=== PATIENT | male | born 1960 | race African-American/Black ===

== ENCOUNTER 2016-06-01 05:37 | Emergency (ER) | payer SELFPAY ==
[~2016-06-01] VITALS: Ht 167.6 cm; Wt 86.0 kg
[~2016-06-01 05:37] MED LIST: LORTA10 PO; OMEP20CA5 PO
[2016-06-01 05:41] VITALS: BP 167/100; PULSE 93; RESP 15; TEMP 97.6; O2SAT 95
--- NOTE | 2016-06-01 06:06 | PD ---
HPI Chief Complaint: Chest Pain Time Seen by Provider: 06:05 Travel History International Travel<30 days: No Contact w/Intl Traveler<30days: No Traveled to known affect area: No History of Present Illness HPI 55-year-old male came to the emergency room with history of right sided chest pain. Patient says it's been going on for past 2-3 days. He was description about the pain is vague. He says the pain radiates from the right side of the chest to the sternal area. He says walking or taking a deep breath makes the pain worse. Describes the pain as sharp in nature. He was hypertensive in triage. He says he is not on any medications and has not been diagnosed with any medical issues. He does not have a primary care physician however. He has had quite a few surgeries in the past. He appeared to be in mild discomfort. No history of fever or chills. No history of cough. Patient is not a smoker. PFSH Past Medical History Narrative Medical List of his past medical, surgical, social and family history was reviewed from the nursing note. Arthritis: Yes Blood Disorders: No Cancer: No Cardiovascular Problems: No Diabetes: No Diminished Hearing: No Endocrine: No Genitourinary: No Immune Disorder: No Musculoskeletal: Yes Neurologic: No Respiratory: Yes Past Surgical History Abdominal Surgery: Yes (hernia) Cholecystectomy: Yes Eye Surgery: Yes Thoracic Surgery: Yes (LUNG BIOPSY 1999) Social History Alcohol Use: No Tobacco Use: No (quit 30 yrs ago) Substance Use: No Allergies-Medications (Allergen,Severity, Reaction): Coded Allergies: Contrast Media (Verified Allergy, Severe, SWOLLEN LEGS, THIGHS, LOWER EXTREMITIES, 06/01/16) Doesn't know where this came from, not sure if it is an allergy. Comments List of his allergies reviewed from the nursing note. Reported Meds & Prescriptions Reported Meds & Active Scripts Active Ventolin Hfa 18 GM Inh (Albuterol Sulfate) 90 Mcg/Act Aer 2 Puff INH Q4H PRN Zithromax Z-Fitz (Azithromycin) 250 Mg Dspk 250 Mg PO DIRECTED 500 MG (2 tabs) day 1, then 1 tab days 2-5. Deltasone (Prednisone) 20 Mg Tab 40 Mg PO DAILY 5 Days Narrative Medication List of his home medications reviewed from the nursing note. Review of Systems Except as stated in HPI: all other systems reviewed are Neg Physical Exam Narrative GENERAL: Awake, alert, mild distress SKIN: Warm and dry. HEAD: Atraumatic. Normocephalic. EYES: Pupils equal and round. No scleral icterus. No injection or drainage. ENT: No nasal bleeding or discharge. Mucous membranes pink and moist. NECK: Trachea midline. No JVD. CARDIOVASCULAR: Regular rate and rhythm. No murmur appreciated. RESPIRATORY: No accessory muscle use. Clear to auscultation. Breath sounds equal bilaterally. GASTROINTESTINAL: Abdomen soft, non-tender, nondistended. Hepatic and splenic margins not palpable. MUSCULOSKELETAL: No obvious deformities. No clubbing. No cyanosis. No edema. NEUROLOGICAL: Awake and alert. No obvious cranial nerve deficits. Motor grossly within normal limits. Normal speech. PSYCHIATRIC: Appropriate mood and affect; insight and judgment normal. Data Data Last Documented VS Vital Signs Date Time Temp Pulse Resp B/P Pulse Ox O2 Delivery O2 Flow Rate FiO2 06/01/16 10:37 133/92 95 06/01/16 08:49 82 18 Nasal Cannula 2 Orders Electrocardiogram (06/01/16 06:08) Basic Metabolic Panel (Bmp) (06/01/16 06:08) Ckmb (Isoenzyme) Profile (06/01/16 06:08) Complete Blood Count With Diff (06/01/16 06:08) D-Dimer (06/01/16 06:08) Magnesium (Mg) (06/01/16 06:08) Prothrombin Time / Inr (Pt) (06/01/16 06:08) Act Partial Throm Time (Ptt) (06/01/16 06:08) Troponin I (06/01/16 06:08) Chest, Single Ap (06/01/16 06:08) Ecg Monitoring (06/01/16 06:08) Bilateral Bp Monitoring (06/01/16 06:08) Iv Access Insert/Monitor (06/01/16 06:08) Oximetry (06/01/16 06:08) Oxygen Administration (06/01/16 06:08) Sodium Chloride 0.9% Flush (Ns Flush) (06/01/16 06:15) Ketorolac Inj (Toradol Inj) (06/01/16 06:15) CKMB (06/01/16 05:55) CKMB% (06/01/16 05:55) Ct Thorax/ Chest Wo Iv Contras (06/01/16 ) Methylprednisolone So Succ Inj (Solumedr (06/01/16 08:00) Albuterol-Ipratropium Neb (Duoneb Neb) (06/01/16 08:00) Lidocaine Pf 4% Neb (Lidocaine Pf 4% Neb (06/01/16 08:00) Troponin I (06/01/16 09:00) Labs Laboratory Tests Test 06/01/16 06/01/16 05:55 08:50 White Blood Count 5.1 TH/MM3 Red Blood Count 5.93 MIL/MM3 Hemoglobin 16.0 GM/DL Hematocrit 49.2 % Mean Corpuscular Volume 82.9 FL Mean Corpuscular Hemoglobin 26.9 PG Mean Corpuscular Hemoglobin 32.5 % Concent Red Cell Distribution Width 15.3 % Platelet Count 208 TH/MM3 Mean Platelet Volume 9.3 FL Neutrophils (%) (Auto) 48.4 % Lymphocytes (%) (Auto) 34.3 % Monocytes (%) (Auto) 14.3 % Eosinophils (%) (Auto) 2.3 % Basophils (%) (Auto) 0.7 % Neutrophils # (Auto) 2.5 TH/MM3 Lymphocytes # (Auto) 1.7 TH/MM3 Monocytes # (Auto) 0.7 TH/MM3 Eosinophils # (Auto) 0.1 TH/MM3 Basophils # (Auto) 0.0 TH/MM3 CBC Comment DIFF FINAL Differential Comment Prothrombin Time 12.3 SEC Prothromb Time International 1.1 RATIO Ratio Activated Partial 28.5 SEC Thromboplast Time D-Dimer Quantitative (PE/DVT) LESS THAN 0.19 MG/L FEU Sodium Level 139 MEQ/L Potassium Level 4.0 MEQ/L Chloride Level 100 MEQ/L Carbon Dioxide Level 31.7 MEQ/L Anion Gap 7 MEQ/L Blood Urea Nitrogen 8 MG/DL Creatinine 0.90 MG/DL Estimat Glomerular Filtration 107 ML/MIN Rate Random Glucose 95 MG/DL Calcium Level 8.8 MG/DL Magnesium Level 2.3 MG/DL Total Creatine Kinase 471 U/L Creatine Kinase MB 8.5 NG/ML Creatine Kinase MB % 1.8 % Troponin I LESS THAN 0.02 0.02 NG/ML NG/ML MDM Medical Decision Making Medical Screen Exam Complete: Yes Emergency Medical Condition: Yes Medical Record Reviewed: Yes Interpretation(s) Twelve-lead EKG was reviewed by me. Normal sinus rhythm, normal axis, anterior T-wave inversions. This EKG is slightly different from his last EKG from 2008. Heart rate of 89 bpm. Differential Diagnosis PE, pneumonia, pneumothorax, ACS, non-STEMI Narrative Course 6:15 AM patient was given IV Toradol for pain control. I have ordered blood test including d-dimer and chest x-ray. 7:04 AM case was signed over to the oncoming ER physician. Procedures EKG Prior to Arrival: Yes Scripts Albuterol 18 GM Inh (Ventolin Hfa 18 GM Inh)90 Mcg/Act Aer2 Puff INH Q4H PRN ( SHORTNESS OF BREATH) #1 INHALER Ref 0 Prov:Shubham Fritz MD 06/01/16 Azithromycin (Zithromax Z-Fitz)250 Mg [id number] Mg PO DIRECTED #1 DSPK Ref 0 500 MG (2 tabs) day 1, then 1 tab days 2-5. Prov:Shubham Fritz MD 06/01/16 Prednisone (Deltasone)20 Mg Tab40 Mg PO DAILY 5 Days Ref 0 Prov:Shubham Fritz MD 06/01/16 Triston Avila MD Jun 01, 2016 06:05
[2016-06-01] MEDS ORDERED: SODIUM CHLORIDE 0.9% FLUSH 5 ML FLUSH IVF PRN (06:15)
[2016-06-01] MEDS ORDERED: KETOROLAC TROMETHAMINE 30 MG/ML (IVP) VIAL IV PUSH ONE (06:15)
[2016-06-01 06:31] LABS: AUTOMATED NEUTROPHIL # 2.5 TH/MM3 (1.8-7.7); BASOPHIL % 0.7 % (0.0-2.0); EOSINOPHIL # 0.1 TH/MM3 (0-0.4); EOSINOPHIL % 2.3 % (0.0-4.0); HEMATOCRIT 49.2 % (39.0-51.0); HEMO FLAGS DIFF FINAL; LYMPH % 34.3 % (9.0-44.0); LYMPHOCYTE # 1.7 TH/MM3 (1.0-4.8); MEAN CELL VOLUME 82.9 FL (80.0-100.0); MEAN CORPUSCULAR HEMOGLOBIN 26.9 PG (27.0-34.0); MEAN CORPUSCULAR HGB CONC 32.5 % (32.0-36.0); MONO % 14.3 % (0.0-8.0); NEUT % 48.4 % (16.0-70.0); PLATELET COUNT 208 TH/MM3 (150-450); RED BLOOD COUNT 5.93 MIL/MM3 (4.50-5.90); RED CELL DISTRIBUTION WIDTH 15.3 % (11.6-17.2); WHITE BLOOD COUNT 5.1 TH/MM3 (4.0-11.0)
[2016-06-01 06:32] VITALS: RESP 18; O2SAT 97
[2016-06-01 06:34] VITALS: BP_SYST 120; BP_SYST 125; BP_DIAS 83; BP_DIAS 84
[2016-06-01 06:49] LABS: APTT (PATIENT) 28.5 SEC (24.3-30.1); INTERNATIONAL NORMALIZED RATIO 1.1 RATIO; PROTHROMBIN TIME - PATIENT 12.3 SEC (9.8-11.6)
[2016-06-01 06:53] LABS: ANION GAP 7 MEQ/L (5-15); BICARBONATE 31.7 MEQ/L (21.0-32.0); BLOOD UREA NITROGEN 8 MG/DL (7-18); CHLORIDE 100 MEQ/L (98-107); GLOMERULAR FILTRATION RATE 107 ML/MIN (>89); MAGNESIUM 2.3 MG/DL (1.5-2.5); SODIUM (NA) 139 MEQ/L (136-145)
[2016-06-01 06:57] LABS: CREATINE KINASE 471 U/L (39-308)
[2016-06-01 07:10] LABS: CKMB 8.5 NG/ML (0.5-3.6)
--- NOTE | 2016-06-01 07:12 | PD ---
Physical Exam Date Seen by Provider: Jun 01, 2016 Time Seen by Provider: 07:10 Narrative The patient is a 55-year-old male who was initially evaluated by Dr. Avila. Please refer to the initial history, physical, diagnostic evaluation, and treatment modality plan. The patient was signed out at [address] of the thorax pending, per the previous physician, CT of the thorax is negative the patient should be placed in the chest pain Center. Data Data Last Documented VS Vital Signs Date Time Temp Pulse Resp B/P Pulse Ox O2 Delivery O2 Flow Rate FiO2 06/01/16 08:49 82 18 133/92 95 Nasal Cannula 2 06/01/16 05:41 97.6 Orders Electrocardiogram (06/01/16 06:08) Basic Metabolic Panel (Bmp) (06/01/16 06:08) Ckmb (Isoenzyme) Profile (06/01/16 06:08) Complete Blood Count With Diff (06/01/16 06:08) D-Dimer (06/01/16 06:08) Magnesium (Mg) (06/01/16 06:08) Prothrombin Time / Inr (Pt) (06/01/16 06:08) Act Partial Throm Time (Ptt) (06/01/16 06:08) Troponin I (06/01/16 06:08) Chest, Single Ap (06/01/16 06:08) Ecg Monitoring (06/01/16 06:08) Bilateral Bp Monitoring (06/01/16 06:08) Iv Access Insert/Monitor (06/01/16 06:08) Oximetry (06/01/16 06:08) Oxygen Administration (06/01/16 06:08) Sodium Chloride 0.9% Flush (Ns Flush) (06/01/16 06:15) Ketorolac Inj (Toradol Inj) (06/01/16 06:15) CKMB (06/01/16 05:55) CKMB% (06/01/16 05:55) Ct Thorax/ Chest Wo Iv Contras (06/01/16 ) Methylprednisolone So Succ Inj (Solumedr (06/01/16 08:00) Albuterol-Ipratropium Neb (Duoneb Neb) (06/01/16 08:00) Lidocaine Pf 4% Neb (Lidocaine Pf 4% Neb (06/01/16 08:00) Troponin I (06/01/16 09:00) Labs Laboratory Tests Test 06/01/16 06/01/16 05:55 08:50 White Blood Count 5.1 TH/MM3 Red Blood Count 5.93 MIL/MM3 Hemoglobin 16.0 GM/DL Hematocrit 49.2 % Mean Corpuscular Volume 82.9 FL Mean Corpuscular Hemoglobin 26.9 PG Mean Corpuscular Hemoglobin 32.5 % Concent Red Cell Distribution Width 15.3 % Platelet Count 208 TH/MM3 Mean Platelet Volume 9.3 FL Neutrophils (%) (Auto) 48.4 % Lymphocytes (%) (Auto) 34.3 % Monocytes (%) (Auto) 14.3 % Eosinophils (%) (Auto) 2.3 % Basophils (%) (Auto) 0.7 % Neutrophils # (Auto) 2.5 TH/MM3 Lymphocytes # (Auto) 1.7 TH/MM3 Monocytes # (Auto) 0.7 TH/MM3 Eosinophils # (Auto) 0.1 TH/MM3 Basophils # (Auto) 0.0 TH/MM3 CBC Comment DIFF FINAL Differential Comment Prothrombin Time 12.3 SEC Prothromb Time International 1.1 RATIO Ratio Activated Partial 28.5 SEC Thromboplast Time D-Dimer Quantitative (PE/DVT) LESS THAN 0.19 MG/L FEU Sodium Level 139 MEQ/L Potassium Level 4.0 MEQ/L Chloride Level 100 MEQ/L Carbon Dioxide Level 31.7 MEQ/L Anion Gap 7 MEQ/L Blood Urea Nitrogen 8 MG/DL Creatinine 0.90 MG/DL Estimat Glomerular Filtration 107 ML/MIN Rate Random Glucose 95 MG/DL Calcium Level 8.8 MG/DL Magnesium Level 2.3 MG/DL Total Creatine Kinase 471 U/L Creatine Kinase MB 8.5 NG/ML Creatine Kinase MB % 1.8 % Troponin I LESS THAN 0.02 0.02 NG/ML NG/ML [facility] Medical Record Reviewed: Yes Supervised Visit with TYLER: No Interpretation(s) EKG reveals normal sinus rhythm with a rate of 89. Inverted T waves noted in lead V1, V2, and V3. Last Impressions Chest X-Ray 06/01/16 0608 Signed Impressions: Service Date/Time: Wednesday, June 01, 2016 06:11 - CONCLUSION: 1. Basilar lung consolidation. Cardiomegaly. CT pending. Jovanni Pruitt MD Chest CT 06/01/16 0000 Signed Impressions: Service Date/Time: Wednesday, June 01, 2016 07:10 - CONCLUSION: 1. Lung fibrosis, worse at the bases and at the lung periphery with traction bronchiectasis and bronchiolectasis. Findings are most characteristic of usual interstitial pneumonitis. 2. There is also mediastinal adenopathy with right paratracheal lymph nodes measuring up to 2.1 cm in diameter. Enlarged nodes contain small calcifications and could be related to granulomatous disease. Jovanni Pruitt MD Laboratory Tests Test 06/01/16 06/01/16 05:55 08:50 White Blood Count 5.1 TH/MM3 Red Blood Count 5.93 MIL/MM3 Hemoglobin 16.0 GM/DL Hematocrit 49.2 % Mean Corpuscular Volume 82.9 FL Mean Corpuscular Hemoglobin 26.9 PG Mean Corpuscular Hemoglobin 32.5 % Concent Red Cell Distribution Width 15.3 % Platelet Count 208 TH/MM3 Mean Platelet Volume 9.3 FL Neutrophils (%) (Auto) 48.4 % Lymphocytes (%) (Auto) 34.3 % Monocytes (%) (Auto) 14.3 % Eosinophils (%) (Auto) 2.3 % Basophils (%) (Auto) 0.7 % Neutrophils # (Auto) 2.5 TH/MM3 Lymphocytes # (Auto) 1.7 TH/MM3 Monocytes # (Auto) 0.7 TH/MM3 Eosinophils # (Auto) 0.1 TH/MM3 Basophils # (Auto) 0.0 TH/MM3 CBC Comment DIFF FINAL Differential Comment Prothrombin Time 12.3 SEC Prothromb Time International 1.1 RATIO Ratio Activated Partial 28.5 SEC Thromboplast Time D-Dimer Quantitative (PE/DVT) LESS THAN 0.19 MG/L FEU Sodium Level 139 MEQ/L Potassium Level 4.0 MEQ/L Chloride Level 100 MEQ/L Carbon Dioxide Level 31.7 MEQ/L Anion Gap 7 MEQ/L Blood Urea Nitrogen 8 MG/DL Creatinine 0.90 MG/DL Estimat Glomerular Filtration 107 ML/MIN Rate Random Glucose 95 MG/DL Calcium Level 8.8 MG/DL Magnesium Level 2.3 MG/DL Total Creatine Kinase 471 U/L Creatine Kinase MB 8.5 NG/ML Creatine Kinase MB % 1.8 % Troponin I LESS THAN 0.02 0.02 NG/ML NG/ML Differential Diagnosis Differential diagnosis includes acute coronary syndrome, Wellens syndrome, pulmonary embolism, pneumonia, pleural effusion, esophageal spasm, GERD. Narrative Course The patient was initially evaluated by the previous physician, please refer to the initial history, physical, diagnostic evaluation, treatment modality plan. The patient was signed out at [address] of the thorax pending. D-dimer was negative, however, x-ray appeared slightly abnormal, therefore, CT of the thorax was ordered by previous physician. Patient was noted to have inverted T waves in V1, V2, V3, inverted T waves were seen on previous EKG according to the previous physician. The previous physician requests admission to chest pain center if CT of the thorax is negative. CT of the thorax reveals lung fibrosis with bronchiectasis and interstitial pneumonitis. I had a discussion with the patient he does note a history of chronic lung disease and has been seen by Dr. Coker in the past. The patient has been on steroids in the past for his interstitial pneumonitis and fibrosis. The patient's chest pain is right sided, pleuritic, worse with inspiration and palpation. Therefore, patient was administered Solu-Medrol and DuoNeb. A second troponin will be sent to lab, the patient's chest pain is very atypical for cardiac origin. The second troponin was normal 0.02. Diagnosis Primary Impression: Interstitial pneumonitis Patient Instructions: General Instructions Additional Instruction: Please provide the patient a copy of his CT results, chest x-ray results, and lab results at discharge. Follow-up with your solvent station attendant. Prednisone as directed. Return if symptoms worsen or progress. Med/Other Pt SpecificInfo: Prescription(s) given Scripts Albuterol 18 GM Inh (Ventolin Hfa 18 GM Inh)90 Mcg/Act Aer2 Puff INH Q4H PRN ( SHORTNESS OF BREATH) #1 INHALER Ref 0 Prov:Shubham Fritz MD 06/01/16 Azithromycin (Zithromax Z-Fitz)250 Mg [id number] Mg PO DIRECTED #1 DSPK Ref 0 500 MG (2 tabs) day 1, then 1 tab days 2-5. Prov:Shubham Fritz MD 06/01/16 Prednisone (Deltasone)20 Mg Tab40 Mg PO DAILY 5 Days Ref 0 Prov:Shubham Fritz MD 06/01/16 Disposition: 01 DISCHARGE HOME Condition: Stable Shubham Fritz MD Jun 01, 2016 07:12
--- NOTE | 2016-06-01 07:30 | RADRPT ---
EXAM DATE/TIME: 06/01/2016 06:11 [facility] COMPARISON: No previous studies available for comparison. INDICATIONS : Chest Pain, mainly when breathing in deeply MEDICAL HISTORY : None. SURGICAL HISTORY : None. ENCOUNTER: Initial ACUITY: 1 day PAIN SCORE: 5/10 LOCATION: Bilateral chest FINDINGS: A single view of the chest demonstrates basilar airspace consolidation. No significant effusion. No p neumothorax. Heart size enlarged. CONCLUSION: 1. Basilar lung consolidation. Cardiomegaly. CT pending. Jovanni Pruitt MD on June 01, 2016 at 7:28 Board Certified Radiologist. This report was verified electronically.
--- NOTE | 2016-06-01 07:40 | RADRPT ---
EXAM DATE/TIME: 06/01/2016 07:10 [facility] COMPARISON: No previous studies available for comparison. INDICATIONS : Right sided chest pain for two days. RADIATION DOSE: 5.2 CTDIvol (mGy) MEDICAL HISTORY : None SURGICAL HISTORY : Cholecystectomy. lung biopsy ENCOUNTER: Initial ACUITY: 2 days PAIN SCALE: 9/10 LOCATION: Right chest TECHNIQUE: Volumetric scanning of the chest was performed. Using automated exposure control and adjustment of t he mA and/or kV according to patient size, radiation dose was kept as low as reasonably achievable to obtain optimal diagnostic quality images. FINDINGS: Basilar lung opacities predominantly fibrotic in nature with fairly extensive traction bronchiectasis and bronchiolectasis at the lung bases. There is some apical fibrosis but less severe and predominan tly peripheral. There is mediastinal adenopathy with the 2 right paratracheal lymph nodes measuring up to 2.1 and 1.8 cm. No effusion. No pneumothorax. No acute findings in the upper abdomen. No acute bony abnormalities. CONCLUSION: 1. Lung fibrosis, worse at the bases and at the lung periphery with traction bronchiectasis and bronc hiolectasis. Findings are most characteristic of usual interstitial pneumonitis. 2. There is also mediastinal adenopathy with right paratracheal lymph nodes measuring up to 2.1 cm in diameter. Enlarged nodes contain small calcifications and could be related to granulomatous disease. Jovanni Pruitt MD on June 01, 2016 at 7:34 Board Certified Radiologist. This report was verified electronically.
[2016-06-01] MEDS ORDERED: methylPREDNISolone SOD SUCC 125 MG/2 ML VIAL IV PUSH ONE (08:00)
[2016-06-01] MEDS ORDERED: RESP: ALBUTEROL 2.5 MG/IPRATROPIUM 0.5 MG NEB (SCH) NEB ONE (08:00)
[2016-06-01] MEDS ORDERED: RESP: LIDOCAINE HCL 4% PF 5 ML NEB NEB ONE (08:00)
[2016-06-01 08:02] VITALS: O2SAT 95
[2016-06-01 08:49] VITALS: BP 133/92; PULSE 82; RESP 18; O2SAT 95
--- NOTE | 2016-06-01 09:20 | EKG ---
Date Performed: 06/01/2016 Time Performed: 05:55:17 PTAGE: 55 years EKG: Sinus rhythm RIGHT ATRIAL ENLARGEMENT POSSIBLE LEFT ATRIAL ENLARGEMENT BORDERLINE RIGHT AXIS DEVIATION Nonspecifi c ST-T wave changes. ABNORMAL ECG Compared to prior electrocardiogram,ST-T wave changes are present. PREVIOUS TRACING : 01/18/2009 15.05 DOCTOR: Vipin Pascual Interpretating Date/Time 06/01/2016 09:19:48
[2016-06-01] MEDS ORDERED: PRED-503 PO (10:21)
[2016-06-01] MEDS ORDERED: VENTAER INH (10:21)
[2016-06-01] MEDS ORDERED: ZITHTAB PO (10:21)
[2016-06-01 10:37] VITALS: BP 133/92
== END 2016-06-01 10:51 | disposition home or self-care (01) ==
LOC: NEPE 05:37
DX: J84.89 Other specified interstitial pulmonary diseases (principal); I51.7 Cardiomegaly; R59.0 Localized enlarged lymph nodes; R94.31 Abnormal electrocardiogram [ECG] [EKG]
CPT/HCPCS: 71010; 71250; 80048; 82550; 82552; 83735; 84484; 85025; 85379; 85610; 85730; 93005; 94664; 96374; 96375; 99285; J1885; J2930

== ENCOUNTER 2017-01-06 15:30 | Emergency (ER) | payer OTHER ==
[~2017-01-06] VITALS: Ht 167.6 cm; Wt 87.0 kg
[~2017-01-06 15:30] MED LIST changes: -LORTA10 PO; -OMEP20CA5 PO; +PRED-503 PO; +VENTAER INH; +ZITHTAB PO
[2017-01-06 15:32] VITALS: BP 161/108; PULSE 108; RESP 15; TEMP 98.6; O2SAT 98
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
[2017-01-06] MEDS ORDERED: IBUP800T23 PO (22:08)
== END 2017-01-06 22:20 | disposition home or self-care (01) ==
LOC: NEPB 15:30
DX: S16.1XXA Strain of muscle, fascia and tendon at neck level, initial encounter (principal); S39.012A Strain of muscle, fascia and tendon of lower back, initial encounter; V49.40XA Driver injured in collision with unspecified motor vehicles in traffic accident, initial encounter; Y92.488 Other paved roadways as the place of occurrence of the external cause
CPT/HCPCS: 72125; 99284; L0150

== ENCOUNTER 2017-04-18 22:25 | Observation (INO) | payer SELFPAY ==
[~2017-04-18] VITALS: Ht 167.6 cm; Wt 88.2 kg
[~2017-04-18 22:25] MED LIST changes: +IBUP1TAB7 PO
[2017-04-18 22:31] VITALS: BP 113/72; PULSE 105; RESP 22; TEMP 97.5; O2SAT 80
[2017-04-18 22:44] VITALS: BP 108/82; PULSE 88; RESP 16
[2017-04-18] MEDS ORDERED: FUROSEMIDE 40 MG/4 ML VIAL IVP ONE (23:00)
[2017-04-18] MEDS ORDERED: SODIUM CHLORIDE 0.9% FLUSH 10 ML FLUSH IVF PRN (23:00)
[2017-04-18] MEDS ORDERED: RESP: ALBUTEROL 2.5 MG/IPRATROPIUM 0.5 MG NEB (SCH) NEB ONE (23:00)
[2017-04-18 23:41] LABS: AUTOMATED NEUTROPHIL # 2.8 TH/MM3 (1.8-7.7); BASOPHIL # 0.1 TH/MM3 (0-0.2); BASOPHIL % 2.5 % (0.0-2.0); EOSINOPHIL # 0.1 TH/MM3 (0-0.4); EOSINOPHIL % 2.6 % (0.0-4.0); HEMATOCRIT 45.2 % (39.0-51.0); LYMPHOCYTE # 1.3 TH/MM3 (1.0-4.8); MEAN CELL VOLUME 85.1 FL (80.0-100.0); MEAN CORPUSCULAR HEMOGLOBIN 28.2 PG (27.0-34.0); MEAN CORPUSCULAR HGB CONC 33.1 % (32.0-36.0); MEAN PLATELET VOLUME 8.9 FL (7.0-11.0); MONO % 12.1 % (0.0-8.0); MONOCYTE # 0.6 TH/MM3 (0-0.9); NEUT % 56.8 % (16.0-70.0); PLATELET COUNT 188 TH/MM3 (150-450); RED BLOOD COUNT 5.31 MIL/MM3 (4.50-5.90); RED CELL DISTRIBUTION WIDTH 15.9 % (11.6-17.2); WHITE BLOOD COUNT 4.9 TH/MM3 (4.0-11.0)
[2017-04-18 23:49] VITALS: O2SAT 94
[2017-04-18 23:49] LABS: CHLORIDE 107 MEQ/L (98-107); SODIUM (NA) 141 MEQ/L (136-145)
[2017-04-18 23:52] LABS: CALCIUM 8.1 MG/DL (8.5-10.1)
[2017-04-18 23:53] LABS: ALBUMIN 3.1 GM/DL (3.4-5.0); BICARBONATE 28.7 MEQ/L (21.0-32.0); BLOOD UREA NITROGEN 22 MG/DL (7-18); GLUCOSE,RANDOM 85 MG/DL (74-106)
[2017-04-18] MEDS ORDERED: AMLO5TAB2 PO (23:53)
[2017-04-18] MEDS ORDERED: HYDR-3516 PO (23:53)
[2017-04-18] MEDS ORDERED: CARV3.12 PO (23:53)
[2017-04-18] MEDS ORDERED: FURO20TA PO (23:53)
[2017-04-18 23:54] LABS: INTERNATIONAL NORMALIZED RATIO 1.3 RATIO; PROTHROMBIN TIME - PATIENT 13.5 SEC (9.8-11.6)
--- NOTE | 2017-04-18 23:54 | RADRPT ---
EXAM DATE/TIME: 04/18/2017 23:36 [place] COMPARISON: CHEST SINGLE AP, June 01, 2016, 6:11. INDICATIONS : Shortness of breath. MEDICAL HISTORY : Cardiovascular disease SURGICAL HISTORY : Cholecystectomy. Hernia repair ENCOUNTER: Initial ACUITY: 1 day PAIN SCORE: 0/10 LOCATION: Bilateral chest FINDINGS: Right-sided small pleural effusion suspected and diffuse interstitial prominence again seen. No confl uent consolidation however patchy airspace disease is suspected in the lower lobes. Cardiomegaly and degenerative changes of the spine. CONCLUSION: Diffuse interstitial infiltrates and patchy airspace disease at the bases. Small right effusion.. Noel Hopkins MD on April 18, 2017 at 23:52 Board Certified Radiologist. This report was verified electronically.
[2017-04-18 23:56] LABS: ALT (GPT) 33 U/L (12-78); AST (GOT) 27 U/L (15-37); GLOMERULAR FILTRATION RATE 76 ML/MIN (>89)
[2017-04-18 23:57] LABS: TOTAL BILIRUBIN ADULT 2.8 MG/DL (0.2-1.0); TOTAL PROTEIN 6.3 GM/DL (6.4-8.2)
[2017-04-18 23:59] LABS: ALKALINE PHOSPHATASE 79 U/L (45-117)
[2017-04-19] VITALS (11 sets, daily range): BP systolic 92–111; BP diastolic 65–80; PULSE 85–88; RESP 13–18; TEMP 96.1–97.2; O2SAT 86–100
[2017-04-19 00:01] LABS: TROPONIN I LESS THAN 0.02 NG/ML (0.02-0.05)
[2017-04-19] MEDS ORDERED: BISACODYL 10 MG SUPP RECTAL PRN (02:15)
[2017-04-19] MEDS ORDERED: LACTULOSE SYRUP 20 GM/30 ML CUP PO PRN (02:15)
[2017-04-19] MEDS ORDERED: NALOXONE HCL 0.4 MG/ML AMP IV PUSH PRN (02:15)
[2017-04-19] MEDS ORDERED: SENNOSIDES 8.6 MG TAB PO PRN (02:15)
[2017-04-19] MEDS ORDERED: SODIUM CHLORIDE 0.9% FLUSH 10 ML FLUSH IV FLUSH PRN (02:15)
[2017-04-19] MEDS ORDERED: ACETAMINOPHEN 325 MG TAB PO PRN (02:15)
[2017-04-19] MEDS ORDERED: ONDANSETRON HCL 4 MG/2 ML VIAL IVP PRN (02:15)
[2017-04-19] MEDS ORDERED: MAGNESIUM HYDROXIDE SUSP 30 ML CUP PO PRN (02:15)
--- NOTE | 2017-04-19 02:16 | PD ---
HPI Chief Complaint: Respiratory Symptoms Time Seen by Provider: 22:48 Travel History International Travel<30 days: No Contact w/Intl Traveler<30days: No Traveled to known affect area: No History of Present Illness HPI Patient is a 56-year-old male comes in complaining of shortness of breath. He says this is been getting worse over the past few days. He has also noticed increased leg swelling and occasional chest pain. He says he has been taking his medication, including Lasix as prescribed. He denies nausea or vomiting. He denies fever or chills. He does report cough. He says that walking makes his symptoms worse. Severity is moderate. PFSH Past Medical History Arthritis: Yes Blood Disorders: No Cancer: No Cardiovascular Problems: No Congestive Heart Failure: Yes Diabetes: No Diminished Hearing: No Endocrine: No Genitourinary: No Immune Disorder: No Musculoskeletal: Yes Neurologic: No Respiratory: Yes Tetanus Vaccination: Unknown ?: Not Past Surgical History Abdominal Surgery: Yes (hernia) Cholecystectomy: Yes Eye Surgery: Yes Thoracic Surgery: Yes (LUNG BIOPSY 1999) Other Surgery: Yes Social History Alcohol Use: No Tobacco Use: No (quit 30 yrs ago) Substance Use: No Allergies-Medications (Allergen,Severity, Reaction): Coded Allergies: diatrizoate meglumine (Verified Allergy, Severe, SWOLLEN LEGS, THIGHS, LOWER EXTREMITIES, 2) Doesn't know where this came from, not sure if it is an allergy. gadobenic acid (Verified Allergy, Severe, SWOLLEN LEGS, THIGHS, LOWER EXTREMITIES, 04/19/17) Doesn't know where this came from, not sure if it is an allergy. gadodiamide (Verified Allergy, Severe, SWOLLEN LEGS, THIGHS, LOWER EXTREMITIES, 2) Doesn't know where this came from, not sure if it is an allergy. gadoteridol (Verified Allergy, Severe, SWOLLEN LEGS, THIGHS, LOWER EXTREMITIES, 2) Doesn't know where this came from, not sure if it is an allergy. iodixanol (Verified Allergy, Severe, SWOLLEN LEGS, THIGHS, LOWER EXTREMITIES, 04/19/17) Doesn't know where this came from, not sure if it is an allergy. iohexol (Verified Allergy, Severe, SWOLLEN LEGS, THIGHS, LOWER EXTREMITIES , 04/19/17) Doesn't know where this came from, not sure if it is an allergy. Reported Meds & Prescriptions Reported Meds & Active Scripts Active Ventolin Hfa 18 GM Inh (Albuterol Sulfate) 90 Mcg/Act Aer 2 Puff INH Q4H PRN Reported Hydrocodone-Acetamin 5-325 mg (Hydrocodone/Acetaminophen) 5 Mg-325 Mg Tablet 1 Tab PO DIRECTED Furosemide 20 Mg Tab 20 Mg PO DAILY Carvedilol 3.125 Mg Tab 3.125 Mg PO BID Amlodipine (Amlodipine Besylate) 5 Mg Tab 5 Mg PO DAILY Review of Systems Except as stated in HPI: all other systems reviewed are Neg General / Constitutional: No: Fever, Chills HENT: No: Headaches, Lightheadedness Cardiovascular: Positive: Chest Pain or Discomfort Respiratory: Positive: Cough, Shortness of Breath Gastrointestinal: No: Nausea, Vomiting Genitourinary: No: Dysuria Musculoskeletal: Positive: Edema Skin: No Rash, No Change in Pigmentation Neurologic: No: Weakness, Dizziness Physical Exam Narrative GENERAL: Awake and alert, no acute distress. SKIN: Focused skin assessment warm/dry. HEAD: Atraumatic. Normocephalic. EYES: Pupils equal and round. No scleral icterus. ENT: Mucous membranes pink and moist. NECK: Trachea midline. No JVD. CARDIOVASCULAR: Regular rate and rhythm. No murmur appreciated. RESPIRATORY: No accessory muscle use. Crackles in both lower lungs, occasional wheeze. Breath sounds equal bilaterally. GASTROINTESTINAL: Abdomen soft, non-tender, nondistended. MUSCULOSKELETAL: No obvious deformities. No clubbing. No cyanosis. No edema. NEUROLOGICAL: Awake and alert. No obvious cranial nerve deficits. Motor grossly within normal limits. Normal speech. PSYCHIATRIC: Appropriate mood and affect; insight and judgment normal. Data Data Last Documented VS Vital Signs Date Time Temp Pulse Resp B/P (MAP) Pulse Ox O2 Delivery O2 Flow Rate FiO2 04/19/17 01:07 88 16 103/80 (88) 100 Nasal Cannula 2.00 04/18/17 22:31 97.5 Orders Orders Complete Blood Count With Diff (04/18/17 22:48) Comprehensive Metabolic Panel (04/18/17 22:48) B-Type Natriuretic Peptide (04/18/17 22:48) Act Partial Throm Time (Ptt) (04/18/17 22:48) Prothrombin Time / Inr (Pt) (04/18/17 22:48) Troponin I (04/18/17 22:48) Influenzae A/B Antigen (04/18/17 22:48) Iv Access Insert/Monitor (04/18/17 22:48) Electrocardiogram (04/18/17 22:48) Ecg Monitoring (04/18/17 22:48) Oximetry (04/18/17 22:48) Oxygen Administration (04/18/17 22:48) Chest, Single Ap (04/18/17 22:48) Sodium Chloride 0.9% Flush (Ns Flush) (04/18/17 23:00) Furosemide Inj (Lasix Inj) (04/18/17 23:00) Albuterol-Ipratropium Neb (Duoneb Neb) (04/18/17 23:00) Admit Order (Ed Use Only) (04/19/17 ) Labs Laboratory Tests Test 04/18/17 23:27 White Blood Count 4.9 TH/MM3 Red Blood Count 5.31 MIL/MM3 Hemoglobin 15.0 GM/DL Hematocrit 45.2 % Mean Corpuscular Volume 85.1 FL Mean Corpuscular Hemoglobin 28.2 PG Mean Corpuscular Hemoglobin Concent 33.1 % Red Cell Distribution Width 15.9 % Platelet Count 188 TH/MM3 Mean Platelet Volume 8.9 FL Neutrophils (%) (Auto) 56.8 % Lymphocytes (%) (Auto) 26.0 % Monocytes (%) (Auto) 12.1 % Eosinophils (%) (Auto) 2.6 % Basophils (%) (Auto) 2.5 % Neutrophils # (Auto) 2.8 TH/MM3 Lymphocytes # (Auto) 1.3 TH/MM3 Monocytes # (Auto) 0.6 TH/MM3 Eosinophils # (Auto) 0.1 TH/MM3 Basophils # (Auto) 0.1 TH/MM3 CBC Comment DIFF FINAL Differential Comment Prothrombin Time 13.5 SEC Prothromb Time International Ratio 1.3 RATIO Activated Partial Thromboplast Time 26.3 SEC Blood Urea Nitrogen 22 MG/DL Creatinine 1.20 MG/DL Random Glucose 85 MG/DL Total Protein 6.3 GM/DL Albumin 3.1 GM/DL Calcium Level 8.1 MG/DL Alkaline Phosphatase 79 U/L Aspartate Amino Transf (AST/SGOT) 27 U/L Alanine Aminotransferase (ALT/SGPT) 33 U/L Total Bilirubin 2.8 MG/DL Sodium Level 141 MEQ/L Potassium Level 4.2 MEQ/L Chloride Level 107 MEQ/L Carbon Dioxide Level 28.7 MEQ/L Anion Gap 5 MEQ/L Estimat Glomerular Filtration Rate 76 ML/MIN Troponin I LESS THAN 0.02 NG/ML B-Type Natriuretic Peptide 975 PG/ML MDM Medical Decision Making Medical Screen Exam Complete: Yes Emergency Medical Condition: Yes Medical Record Reviewed: Yes Interpretation(s) ECG shows normal sinus rhythm at 90, no ST elevation or depression Differential Diagnosis CHF exacerbation versus pneumonia versus COPD versus ACS Narrative Course Patient is a 56-year-old male comes in complaining of shortness of breath. Exam shows crackles in both lower lungs as well as bilateral lower extremity edema. IV established, labs sent. Patient given oxygen via nasal cannula. Labs show an elevated BNP. Chest x-ray shows pulmonary edema. Patient given Lasix. Last 24 hours Impressions Chest X-Ray 04/18/17 2248 Signed Impressions: Service Date/Time: Tuesday, April 18, 2017 23:36 - CONCLUSION: Diffuse interstitial infiltrates and patchy airspace disease at the bases. Small right effusion.. Noel Hopkins MD Patient admitted for further management. Diagnosis Primary Impression: CHF exacerbation Qualified Codes: I50.9 - Heart failure, unspecified Admitting Information Admitting Physician Requests: Admit Lacy Alva MD Apr 19, 2017 02:16
[2017-04-19] MEDS: HEPARIN SODIUM - SQ 10,000 UNITS/ML VIAL SQ SCH ×3 (03:27→18:42)
[2017-04-19 07:40] LABS: TROPONIN I LESS THAN 0.02 NG/ML (0.02-0.05)
[2017-04-19] MEDS: DOCUSATE SODIUM 50 MG/SENNA 8.6 MG TAB PO SCH ×2 (09:10→20:17)
[2017-04-19] MEDS: FUROSEMIDE 40 MG/4 ML VIAL IV PUSH SCH ×2 (09:11→18:41)
[2017-04-19] MEDS: SODIUM CHLORIDE 0.9% FLUSH 10 ML FLUSH IV FLUSH SCH ×2 (09:11→20:19)
[2017-04-19] MEDS: LEVOFLOXACIN 500 MG PREMIX INJ 100 ML IV SCH (09:27)
--- NOTE | 2017-04-19 11:58 | HHI.HP ---
[facility] No Primary Care Physician Admission Diagnosis CHF exacerbation, SOB Diagnoses: Chief Complaint: Shortness of breath Travel History International Travel<30 Days: No Contact w/Intl Traveler <30 Da: No Traveled to Known Affected Are: No History of Present Illness this patient is a 56-year-old gentleman with a known history of congestive heart failure who has admitted to increased dietary indiscretions including high sodium and other inappropriate foods. He has noticed increased leg swelling. He denies any chest pain but has had shortness of breath. He does take Lasix as prescribed but noted that his legs became very heavy and he came to the emergency room for further evaluation. A chest x-ray was done on my review does show some basilar congestion as well as interstitial infiltrates. An EKG was done which does not show any acute ischemic changes. Cardiac enzymes are negative. Patient is recommended for further observation due to elevated BNP with clinical signs of congestive heart failure exacerbation Review of Systems Constitutional: DENIES: Diaphoretic episodes, Fatigue, Fever, Weight gain, Weight loss, Chills, Dizziness, Change in appetite, Night Sweats Endocrine: DENIES: Heat/cold intolerance, Polydipsia, Polyuria, Polyphagia Eyes: DENIES: Blurred vision, Diplopia, Eye inflammation, Eye pain, Vision loss , Photosensitivity, Double Vision Ears, nose, mouth, throat: DENIES: Tinnitus, Hearing loss, Vertigo, Nasal discharge, Oral lesions, Throat pain, Hoarseness, Ear Pain, Running Nose, Epistaxis, Sinus Pain, Toothache, Odynophagia Respiratory: DENIES: Apneas, Cough, Snoring, Wheezing, Hemoptysis, Sputum production, Shortness of breath Cardiovascular: COMPLAINS OF: Dyspnea on Exertion, Lower Extremity Edema, DENIES: Chest pain, Palpitations, Syncope, PND, Orthopnea, Claudication Gastrointestinal: DENIES: Abdominal pain, Black stools, Bloody stools, Constipation, Diarrhea, Nausea, Vomiting, Difficulty Swallowing, Anorexia Genitourinary: DENIES: Sexual dysfunction, Urinary frequency, Urinary incontinence, Urgency, Hematuria, Dysuria, Nocturia, Penile Discharge, Testicular Pain, Testicular Swelling Musculoskeletal: DENIES: Joint pain, Muscle aches, Stiffness, Joint Swelling, Back pain, Neck pain Integumentary: DENIES: Abnormal pigmentation, Nail changes, Pruritus, Rash Hematologic/lymphatic: DENIES: Bruising, Lymphadenopathy Immunologic/allergic: DENIES: Eczema, Urticaria Neurologic: DENIES: Abnormal gait, Headache, Localized weakness, Paresthesias, Seizures, Speech Problems, Tremor, Poor Balance Except as stated in HPI: all other systems reviewed are Neg Past Family Social History Past Medical History Congestive heart failure Hypertension Past Surgical History Hernia repair Gallbladder Reported Medications Reviewed in the EMR Allergies: Coded Allergies: diatrizoate meglumine (Verified Allergy, Severe, SWOLLEN LEGS, THIGHS, LOWER EXTREMITIES, 04/19/17) Doesn't know where this came from, not sure if it is an allergy. gadobenic acid (Verified Allergy, Severe, SWOLLEN LEGS, THIGHS, LOWER EXTREMITIES, 04/19/17) Doesn't know where this came from, not sure if it is an allergy. gadodiamide (Verified Allergy, Severe, SWOLLEN LEGS, THIGHS, LOWER EXTREMITIES, 04/19/17) Doesn't know where this came from, not sure if it is an allergy. gadoteridol (Verified Allergy, Severe, SWOLLEN LEGS, THIGHS, LOWER EXTREMITIES, 04/19/17) Doesn't know where this came from, not sure if it is an allergy. iodixanol (Verified Allergy, Severe, SWOLLEN LEGS, THIGHS, LOWER EXTREMITIES, 04/19/17) Doesn't know where this came from, not sure if it is an allergy. iohexol (Verified Allergy, Severe, SWOLLEN LEGS, THIGHS, LOWER EXTREMITIES , 04/19/17) Doesn't know where this came from, not sure if it is an allergy. Active Ordered Medications Reviewed in the EMR Family History Mother from breast cancer in her 70s, father in his 80s Social History No tobacco or alcohol dependency, lives with his is employed Physical Exam Vital Signs Vital Signs Date Time Temp Pulse Resp B/P (MAP) Pulse Ox O2 Delivery O2 Flow Rate FiO2 04/19/17 08:31 92 Nasal Cannula 2.00 04/19/17 05:38 96.1 85 18 111/79 (90) 88 04/19/17 04:43 97 Nasal Cannula 2.00 04/19/17 04:43 85 16 106/76 (86) 97 Nasal Cannula 2.00 04/19/17 04:39 88 16 100 Nasal Cannula 2.00 04/19/17 03:30 86 16 105/79 (88) 100 Nasal Cannula 2.00 04/19/17 01:07 88 16 103/80 (88) 100 Nasal Cannula 2.00 04/19/17 00:22 88 16 04/18/17 23:49 94 Nasal Cannula 2.00 04/18/17 22:44 88 16 108/82 (91) 04/18/17 22:44 88 18 92 Room Air 04/18/17 22:44 92 Nasal Cannula 2.00 04/18/17 22:31 97.5 105 22 113/72 (86) 80 Physical Exam GENERAL: This is a well-nourished, well-developed patient, in no apparent distress. SKIN: No rashes, ecchymoses or lesions. Cool and dry. HEAD: Atraumatic. Normocephalic. No temporal or scalp tenderness. EYES: Pupils equal round and reactive. Extraocular motions intact. No scleral icterus. No injection or drainage. ENT: Nose without bleeding, purulent drainage or septal hematoma. Throat without erythema, tonsillar hypertrophy or exudate. Uvula midline. Airway patent. NECK: Trachea midline. No JVD or lymphadenopathy. Supple, nontender, no meningeal signs. CARDIOVASCULAR: Regular rate and rhythm without murmurs, gallops, or rubs. RESPIRATORY: Clear to auscultation. Breath sounds equal bilaterally. No wheezes , rales, or rhonchi. GASTROINTESTINAL: Abdomen soft, non-tender, nondistended. No hepato-splenomegaly , or palpable masses. No guarding. MUSCULOSKELETAL: Extremities without clubbing, cyanosis, but there is +3 edema. No joint tenderness, effusion, or edema noted. No calf tenderness. Negative Homans sign bilaterally. NEUROLOGICAL: Awake and alert. Cranial nerves II through XII intact. Motor and sensory grossly within normal limits. Five out of 5 muscle strength in all muscle groups. Normal speech. Laboratory Laboratory Tests Test 04/18/17 23:27 04/19/17 05:49 04/19/17 11:16 White Blood Count 4.9 Red Blood Count 5.31 Hemoglobin 15.0 Hematocrit 45.2 Mean Corpuscular Volume 85.1 Mean Corpuscular Hemoglobin 28.2 Mean Corpuscular Hemoglobin Concent 33.1 Red Cell Distribution Width 15.9 Platelet Count 188 Mean Platelet Volume 8.9 Neutrophils (%) (Auto) 56.8 Lymphocytes (%) (Auto) 26.0 Monocytes (%) (Auto) 12.1 Eosinophils (%) (Auto) 2.6 Basophils (%) (Auto) 2.5 Neutrophils # (Auto) 2.8 Lymphocytes # (Auto) 1.3 Monocytes # (Auto) 0.6 Eosinophils # (Auto) 0.1 Basophils # (Auto) 0.1 CBC Comment DIFF FINAL Differential Comment Prothrombin Time 13.5 Prothromb Time International Ratio 1.3 Activated Partial Thromboplast Time 26.3 Blood Urea Nitrogen 22 Creatinine 1.20 Random Glucose 85 Total Protein 6.3 Albumin 3.1 Calcium Level 8.1 Alkaline Phosphatase 79 Aspartate Amino Transf (AST/SGOT) 27 Alanine Aminotransferase (ALT/SGPT) 33 Total Bilirubin 2.8 Sodium Level 141 Potassium Level 4.2 Chloride Level 107 Carbon Dioxide Level 28.7 Anion Gap 5 Estimat Glomerular Filtration Rate 76 Troponin I LESS THAN 0.02 LESS THAN 0.02 B-Type Natriuretic Peptide 975 Total Creatine Kinase 82 Date/Time Source Procedure Growth Status 04/18/17 23:33 Nasal Washing Influenza Types A,B Antigen (ARANZA) - Final NEGATIVE FOR FLU A AND B ANTIGEN.... Complete Result Diagram: 04/18/17232604/18/172326 Imaging Last Impressions Chest X-Ray 04/18/172247 Signed Impressions: Service Date/Time: Tuesday, April 18, 2017 23:36 - CONCLUSION: Diffuse interstitial infiltrates and patchy airspace disease at the bases. Small right effusion.. Noel Hopkins MD Caplandyi VTE Risk Assessment Caprini VTE Risk Assessment: Mod/High Risk (score >= 2) Caprini Risk Assessment Model Point Value = 1 Point Value = 2 Point Value = 3 Point Value = 5 Age 41-60 Minor surgery BMI > 25 kg/m2 Swollen legs Varicose veins or History of unexplained or recurrent spontaneous Oral contraceptives or hormone replacement Sepsis (< 1 month) Serious lung disease, including pneumonia (< 1 month) Abnormal pulmonary function Acute myocardial infarction Congestive heart failure (< 1 month) History of inflammatory bowel disease Medical patient at bed rest Age 61-74 Arthroscopic surgery Major open surgery (> 45 min) Laparoscopic surgery (> 45 min) Malignancy Confined to bed (> 72 hours) Immobilizing plaster cast Central venous access Age >= 75 History of VTE Family history of VTE Factor V Leiden Prothrombin [id number] Lupus anticoagulant Anticardiolipin antibodies Elevated serum homocysteine Heparin-induced thrombocytopenia Other congenital or acquired thrombophilia Stroke (< 1 month) Elective arthroplasty Hip, pelvis, or leg fracture Acute spinal cord injury (< 1 month) Prophylaxis Regimen Total Risk Factor Score Risk Level Prophylaxis Regimen 0-1 Low Early ambulation 2 Moderate Order ONE of the following: *Sequential Compression Device (SCD) *Heparin 5000 units SQ BID 3-4 Higher Order ONE of the following medications: *Heparin 5000 units SQ TID *Enoxaparin/Lovenox 40 mg SQ daily (WT < 150 kg, CrCl > 30 mL/min) *Enoxaparin/Lovenox 30 mg SQ daily (WT < 150 kg, CrCl > 10-29 mL/min) *Enoxaparin/Lovenox 30 mg SQ BID (WT < 150 kg, CrCl > 30 mL/min) AND/OR *Sequential Compression Device (SCD) 5 or more Highest Order ONE of the following medications: *Heparin 5000 units SQ TID (Preferred with Epidurals) *Enoxaparin/Lovenox 40 mg SQ daily (WT < 150 kg, CrCl > 30 mL/min) *Enoxaparin/Lovenox 30 mg SQ daily (WT < 150 kg, CrCl > 10-29 mL/min) *Enoxaparin/Lovenox 30 mg SQ BID (WT < 150 kg, CrCl > 30 mL/min) AND *Sequential Compression Device (SCD) Assessment and Plan Problem List: (1) Pneumonia ICD Code: J18.9 - Pneumonia, unspecified organism Plan: Continue with Levaquin (2) CHF exacerbation ICD Code: I50.9 - Heart failure, unspecified Status: Acute Plan: Continue with patient education for dietary discretion Continue Lasix Follow-up echocardiogram Problem Qualifiers (1) CHF exacerbation: Qualified Codes: I50.9 - Heart failure, unspecified Laverne Groves MD Apr 19, 2017 11:58
[2017-04-19 12:06] LABS: TROPONIN I LESS THAN 0.02 NG/ML (0.02-0.05)
--- NOTE | 2017-04-19 14:50 | EKG ---
Date Performed: 04/18/2017 Time Performed: 23:19:13 PTAGE: 56 years EKG: Sinus rhythm Right axis deviation. Atrial abnormality. First degree AV block. Nonspecific T wave change. When com pared to previous tracing, the axis is somewhat more Rightward, and the QRS voltage is less prominant in the precordial Leads. ABNORMAL ECG PREVIOUS TRACING : 06/01/2016 05.55 DOCTOR: Gregory Panda Interpretating Date/Time 04/19/2017 14:55:24
--- NOTE | 2017-04-19 14:54 | EKG ---
Date Performed: 04/19/2017 Time Performed: 05:29:04 PTAGE: 56 years EKG: Sinus rhythm Right axis deviation. First degree AV block. Atrial abnormality. Nonspecific T wave change. When com pared to previous tracing, no significant change. ABNORMAL ECG PREVIOUS TRACING : 04/18/2017 23.19 DOCTOR: Gregory Panda Interpretating Date/Time 04/19/2017 14:56:55
[2017-04-20] VITALS (7 sets, daily range): BP systolic 108–113; BP diastolic 75–84; PULSE 91–106; RESP 14–18; TEMP 96–99.3; O2SAT 90–92
[2017-04-20] MEDS: HEPARIN SODIUM - SQ 10,000 UNITS/ML VIAL SQ SCH ×3 (02:11→18:22)
[2017-04-20 06:59] LABS: AUTOMATED NEUTROPHIL # 2.6 TH/MM3 (1.8-7.7); BASOPHIL % 0.3 % (0.0-2.0); EOSINOPHIL # 0.3 TH/MM3 (0-0.4); EOSINOPHIL % 5.8 % (0.0-4.0); HEMATOCRIT 44.3 % (39.0-51.0); HEMOGLOBIN 13.9 GM/DL (13.0-17.0); LYMPH % 26.4 % (9.0-44.0); LYMPHOCYTE # 1.4 TH/MM3 (1.0-4.8); MEAN CELL VOLUME 87.1 FL (80.0-100.0); MEAN CORPUSCULAR HEMOGLOBIN 27.4 PG (27.0-34.0); MEAN CORPUSCULAR HGB CONC 31.5 % (32.0-36.0); MEAN PLATELET VOLUME 9.2 FL (7.0-11.0); MONO % 14.9 % (0.0-8.0); MONOCYTE # 0.8 TH/MM3 (0-0.9); NEUT % 52.6 % (16.0-70.0); PLATELET COUNT 170 TH/MM3 (150-450); RED BLOOD COUNT 5.09 MIL/MM3 (4.50-5.90); RED CELL DISTRIBUTION WIDTH 15.2 % (11.6-17.2); WHITE BLOOD COUNT 5.1 TH/MM3 (4.0-11.0)
[2017-04-20 07:15] LABS: BICARBONATE 34.6 MEQ/L (21.0-32.0); CALCIUM 8.4 MG/DL (8.5-10.1)
[2017-04-20 07:19] LABS: CREATININE 0.99 MG/DL (0.60-1.30)
[2017-04-20] MEDS: LEVOFLOXACIN 500 MG PREMIX INJ 100 ML IV SCH (08:05)
[2017-04-20] MEDS: DOCUSATE SODIUM 50 MG/SENNA 8.6 MG TAB PO SCH ×2 (08:12→21:20)
[2017-04-20] MEDS: SODIUM CHLORIDE 0.9% FLUSH 10 ML FLUSH IV FLUSH SCH ×2 (08:18→21:20)
--- NOTE | 2017-04-20 09:10 | HHI.PR ---
Subjective Remarks patient seen and evaluated in follow-up for congestive heart failure with exacerbation. Preliminary echo studies did show severe cardiomyopathy. Patient appears to have little insight to this and his appears to be unaware. We'll obtain records from [facility] if able. Patient has put out over 8 L of fluid by diuresis Objective Vitals Vital Signs Date Time Temp Pulse Resp B/P (MAP) Pulse Ox O2 Delivery O2 Flow Rate FiO2 04/20/17 08:22 Room Air 04/20/17 00:00 96.6 91 18 113/82 (92) 90 04/19/17 20:00 92 Nasal Cannula 2.50 04/19/17 20:00 96.1 88 18 98/68 (78) 92 04/19/17 19:37 93 Nasal Cannula 2.00 04/19/17 16:00 97.2 85 13 93/67 (76) 92 04/19/17 16:00 97.2 85 13 93/67 (76) 92 04/19/17 12:00 96.4 88 16 92/65 (74) 86 I/O 04/19/17 04/19/17 04/19/17 04/20/17 04/20/17 04/20/17 07:00 15:00 23:00 07:00 15:00 23:00 Intake Total 0 ml 480 ml 2 ml Output Total 2950 ml 350 ml 3550 ml 1000 ml Balance -2950 ml -350 ml -3550 ml -520 ml 2 ml Intake Oral 0 ml 480 ml IV Total 2 ml Output Urine Total 2950 ml 350 ml 3550 ml 1000 ml # Voids 5 Result Diagram: 04/20/17 0601 04/20/17 0601 Imaging Last Impressions Chest X-Ray 04/18/17 2793 Signed Impressions: Service Date/Time: Tuesday, April 18, 2017 23:36 - CONCLUSION: Diffuse interstitial infiltrates and patchy airspace disease at the bases. Small right effusion.. Noel Hopkins MD Objective Remarks GENERAL: This is a well-nourished, well-developed patient, in no apparent distress. CARDIOVASCULAR: Regular rate and rhythm without murmurs, gallops, or rubs. RESPIRATORY: Clear to auscultation. Breath sounds equal bilaterally. No wheezes , rales, or rhonchi. GASTROINTESTINAL: Abdomen soft, non-tender, nondistended. Normal active bowel sounds MUSCULOSKELETAL: Extremities without clubbing, cyanosis, or edema. NEURO: Alert & Oriented x4 to person, place, time, situation. Moves all ext x4 A/P Problem List: (1) Pneumonia ICD Code: J18.9 - Pneumonia, unspecified organism Plan: Continue with empiric Levaquin (2) CHF exacerbation ICD Code: I50.9 - Heart failure, unspecified Status: Acute Plan: Continue with patient education for dietary discretion Continue Lasix, lisinopril (if BP tolerates) Education Follow-up echocardiogram does show severe cardiomyopathy, official report pending Cardiology eval pending Problem Qualifiers (1) CHF exacerbation: Qualified Codes: I50.9 - Heart failure, unspecified Laverne Groves MD Apr 20, 2017 09:10
[2017-04-20] MEDS ORDERED: PILL SPLITTER OTHER PRN (09:15)
[2017-04-20] MEDS: LISINOPRIL 5 MG TAB PO SCH (10:37)
--- NOTE | 2017-04-20 12:46 | EKG ---
Date Performed: 04/19/2017 Time Performed: 11:20:51 PTAGE: 56 years EKG: Sinus rhythm WITH FIRST DEGREE AV BLOCK POSSIBLE RIGHT ATRIAL ENLARGEMENT AXIS IS RIGHTWARD NONSPECIFIC T CHANGE Since previous tracing, no significant change noted ABNORMAL ECG PREVIOUS TRACING : 04/19/2017 05.29 DOCTOR: Gregory Panda Interpretating Date/Time 04/20/2017 12:44:47
--- NOTE | 2017-04-20 15:20 | ECHRPT ---
Indication: HEART FAILURE CONCLUSIONS Normal left ventricular size. Wall thickness is normal. The left ventricular systolic function is normal with an estimated ejection fraction in the range of 60-65%. There is a flattened septum in systole consistent with right ventricle pressure overload. The right ventricle is moderately dilated. The right ventricular systoilc function is moderately decreased. The right ventricular wall thickness is mildly increased. The right atrial size is severely dilated. Trace mitral valve regurgitation. There is moderate tricuspid regurgitation. There is estimated severe pulmonary hypertension present ( 99 mmHg). BP: / HR: Rhythm: Technical Quality:Good FINDINGS LEFT VENTRICLE Normal left ventricular size. Wall thickness is normal. The left ventricular systolic function is normal with an estimated ejection fraction in the range of 60-65%. There is a flattened septum in systole consistent with right ventricle pressure overload. Doppler parameters are consistent with impaired left ventricular relaxtion (grade 1 diastolic dysfun ction). RIGHT VENTRICLE The right ventricle is moderately dilated. The right ventricular systoilc function is moderately decreased. The right ventricular wall thickness is mildly increased. LEFT ATRIUM The left atrial size is normal. RIGHT ATRIUM The right atrial size is severely dilated. ATRIAL SEPTUM Normal atrial septal thickness without atrial level shunting by limited color doppler interrogation. AORTA The aortic root and proximal ascending aorta are normal in size on limited imaging. MITRAL VALVE Trace mitral valve regurgitation. AORTIC VALVE Trileaflet aortic valve. No aortic valve stenosis or regurgitation. TRICUSPID VALVE There is moderate tricuspid regurgitation. There is estimated severe pulmonary hypertension present ( 99 mmHg). PULMONARY VALVE The pulmonary valve is not well visualized. VESSELS The inferior vena cava is normal in size. PERICARDIUM No pericardial effusion. Sal Barnes MD (Electronically Signed) Final Date:20 April 2017 15:19
--- NOTE | 2017-04-20 17:01 | MB ---
cc: ANNALISE BURDICK MD DATE OF CONSULTATION 04/20/2017 REASON FOR CONSULTATION Abnormal echocardiogram. HISTORY OF PRESENT ILLNESS The patient is a pleasant 56-year-old gentleman who denies cardiac history but who had a CT scan of the lungs done approximately a year ago which showed lung fibrosis worse at the bases and periphery with traction bronchiectasis and bronchiolectasis consistent with interstitial pneumonitis with mediastinal adenopathy. The patient presents with worsening shortness of breath and swelling in the legs. An echocardiogram showed severe RV dysfunction as well as severely elevated pulmonary pressures up to almost 100 mmHg. He denies any chest pain, lightheadedness, dizziness or syncope. PAST MEDICAL HISTORY 1. Pulmonary fibrosis. 2. Hypertension. ALLERGIES MULTIPLE, PLEASE SEE THE CHART. PHYSICAL EXAMINATION VITAL SIGNS: Afebrile. Pulse 106, respiratory rate 14. Blood pressure 111/81. Sating 92% on room air. GENERAL: Pleasant -Angolan gentleman in no distress. NECK: No JVD. LUNGS: Slight crackles at the bases. CARDIOVASCULAR: Regular rate and rhythm. No significant murmurs appreciated. ABDOMEN: Benign. EXTREMITIES: 1+ edema bilaterally. LABORATORY DATA Sodium 140, potassium 4.1, chloride 111, bicarbonate 34.6, BUN 18, creatinine 0.99, glucose 93. Cardiac enzymes are negative. BNP is 975. White count 5.1, hematocrit 44.3, platelets 170. Echocardiogram notable for ejection fraction of 60-65% with evidence of severe right-sided pressure overload with dilated right atrium and ventricle and severe pulmonary hypertension approximately 99 mmHg. IMPRESSION Abnormal echo / pulmonary hypertension. Upon review of the chart the patient apparently has pulmonary fibrosis seen by CT scan about a year ago. Likely this chronic condition is what has caused his severe pulmonary hypertension. I do recommend that he be seen by a bottling equipment sales representative for long-term treatment of his pulmonary fibrosis and pulmonary hypertension. He will undergo a VQ scan to ensure no pulmonary embolus, but now that I have seen this CT scan, is fairly readily explains the chronic right ventricular failure finding seen on his echocardiogram. Otherwise I do not have any additional recommendations from a cardiac standpoint and the left ventricle appears to be functioning well. I will be available on as-needed basis. Please call with any questions. Thank you again for the opportunity to participate in this patient's care. MD GREGORY Brown /4:03 PM /4:47 PM
--- NOTE | 2017-04-20 18:21 | RADRPT ---
EXAM DATE/TIME: 04/20/2017 17:37 [facility] COMPARISON: CHEST SINGLE AP, April 18, 2017, 23:36. INDICATIONS : Short of breath. DOSE: 8.1 mCi Tc99m MAA IV 0.7 mCi Tc99m DTPA aerosol MEDICAL HISTORY : Chronic obstructive pulmonary disease. Congestive heart failure. Hypertension. SURGICAL HISTORY : Inguinal hernia repair. Cholecystectomy. ENCOUNTER: Initial ACUITY: 1 day PAIN SCALE: 2/10 LOCATION: Bilateral chest TECHNIQUE: Following five minutes of tidal breathing of DTPA aerosol, planar images of the lungs were performed in eight projections. The patient was then injected with MAA, and eight-view perfusion scan was perf ormed. FINDINGS: The perfusion appears intact under opacity or infiltrate defects corresponding to parenchymal changes on the patient's chest x-ray. CONCLUSION: Low probability for PE. Luis Moncada MD on April 20, 2017 at 18:18 Board Certified Radiologist. This report was verified electronically.
--- NOTE | 2017-04-20 19:15 | RADRPT ---
EXAM DATE/TIME: 04/20/2017 18:45 [facility] COMPARISON: CHEST SINGLE AP, April 18, 2017, 23:36. INDICATIONS : Shortness of breath. MEDICAL HISTORY : Cardiovascular disease. SURGICAL HISTORY : None. ENCOUNTER: Initial ACUITY: 4 - 6 days PAIN SCORE: 0/10 LOCATION: Bilateral chest FINDINGS: There is no change in mainly interstitial process in both lungs. Slight cardiomegaly has not changed. CONCLUSION: No appreciable change. Luis Moncada MD on April 20, 2017 at 19:12 Board Certified Radiologist. This report was verified electronically.
--- NOTE | 2017-04-20 19:41 | MB ---
cc: CAROLEE ZAROC M.D. DATE OF CONSULTATION: 04/20/2017. REASON FOR CONSULTATION: Pulmonary fibrosis. HISTORY OF PRESENT ILLNESS: The patient is a 56-year-old -[place] male who was admitted with increasing shortness of breath and increasing ankle edema according to his records. He did have a previous echocardiogram about a year ago with severe pulmonary hypertension as well as pulmonary fibrosis and bronchiectasis. The patient denies history of fever, chills, has an occasional cough, no hemoptysis. No TB or industrial exposure. PAST MEDICAL HISTORY: Past medical history is that of: 1. Pulmonary fibrosis as discussed above. 2. Pulmonary hypertension. 3. Systemic hypertension as well. MEDICATIONS: 1. Hydrocodone. 2. Lasix. 3. Carvedilol. 4. Amlodipine. ALLERGIES: PLEASE REVIEW THE MEDICAL RECORD FOR MULTIPLE ALLERGIES. FAMILY HISTORY: Noncontributory. REVIEW OF SYSTEMS: A twelve-point review of systems is as per the history of present illness and past history, otherwise negative. PHYSICAL EXAMINATION: GENERAL: On exam, the patient is alert. VITAL SIGNS: Temperature 98, pulse 80, respirations 18, blood pressure 103/80. Oxygen saturation 100% on two liters oxygen via nasal cannula. HEAD, EYES, EARS, NOSE, THROAT: Unremarkable. Eyes without icterus. NECK: Without adenopathy, thyroid enlargement, central trachea. CHEST: A few rhonchi at the bases. CARDIAC: PMI distant. S1-S2 audible. No murmur, no rub. ABDOMEN: Lax. Bowel sounds audible. EXTREMITIES: 2+ edema. LABS: White count 4.9, hemoglobin 15, hematocrit 45, platelets 188,000. Sodium 140, potassium 4.1, BUN 18, creatinine 0.9. IMPRESSION: 1. Respiratory failure. 2. Pulmonary hypertension. 3. Pulmonary fibrosis. PLAN: 1. The patient is on oxygen therapy with adequate oxygenation. 2. Antibiotic therapy on an empiric basis would be appropriate. 3. The findings on chest x-ray are likely chronic, I would attempt to obtain the patient's previous records and previous workup for pulmonary fibrosis in an attempt to identify the etiology for the extensive findings on chest x-ray. 4. With the patient's severe pulmonary hypertension, he will require therapy for same. 5. Will check baseline arterial blood gas. 6. Cardiology consultation has been obtained and update on the patient's cardiac findings will be obtained as well. I do thank you for asking me to partake in Mr. Jiang' care. Carolee Zarco MD [facility] /6:22 PM /7:24 PM
[2017-04-21] VITALS: BP 111/84; PULSE 95; RESP 16; TEMP 97.6; O2SAT 90
[2017-04-21] MEDS: HEPARIN SODIUM - SQ 10,000 UNITS/ML VIAL SQ SCH ×2 (02:27→10:15)
[2017-04-21 08:00] VITALS: BP 112/85; PULSE 87; RESP 20; TEMP 97.4; O2SAT 91; O2SAT 95
[2017-04-21] MEDS: LEVOFLOXACIN 500 MG PREMIX INJ 100 ML IV SCH (08:53)
[2017-04-21] MEDS: LISINOPRIL 5 MG TAB PO SCH (08:53)
[2017-04-21] MEDS: DOCUSATE SODIUM 50 MG/SENNA 8.6 MG TAB PO SCH (08:53)
[2017-04-21] MEDS: SODIUM CHLORIDE 0.9% FLUSH 10 ML FLUSH IV FLUSH SCH (08:56)
[2017-04-21] MEDS ORDERED: OXYGENDME NAS.CANULA (11:34)
[2017-04-21] MEDS ORDERED: LISI-519 PO (11:38)
[2017-04-21] MEDS ORDERED: LEVO500T8 PO (11:38)
--- NOTE | 2017-04-21 11:38 | HHI.DCPOC ---
Discharge Care Plan Diagnosis: (1) CHF exacerbation (2) Interstitial pneumonitis (3) Pneumonia Goals to Promote Your Health * To prevent worsening of your condition and complications * To maintain your health at the optimal level Directions to Meet Your Goals Take your medications as prescribed Follow your dietary instruction Follow activity as directed Keep your appointments as scheduled Take your immunizations and boosters as scheduled If your symptoms worsen call your PCP, if no PCP go to Urgent Care Center or Emergency Room Smoking is Dangerous to Your Health. Avoid second hand smoke Call the 24-hour hour crisis hotline for domestic abuse at Laverne Groves MD Apr 21, 2017 11:38
[2017-04-21 11:48] VITALS: BP 123/89; PULSE 91; RESP 20; TEMP 97.4; O2SAT 95
--- NOTE | 2017-04-21 12:01 | HHI.DS ---
Discharge Summary Admission Date Apr 19, 2017 at 02:16 Discharge Date: Apr 21, 2017 Admitting Diagnosis CHF exacerbation, SOB (1) Pneumonia ICD Code: J18.9 - Pneumonia, unspecified organism (2) CHF exacerbation ICD Code: I50.9 - Heart failure, unspecified Status: Acute Procedures echo Brief History - From Admission this patient is a 56-year-old gentleman with a known history of congestive heart failure who has admitted to increased dietary indiscretions including high sodium and other inappropriate foods. He has noticed increased leg swelling. He denies any chest pain but has had shortness of breath. He does take Lasix as prescribed but noted that his legs became very heavy and he came to the emergency room for further evaluation. A chest x-ray was done on my review does show some basilar congestion as well as interstitial infiltrates. An EKG was done which does not show any acute ischemic changes. Cardiac enzymes are negative. Patient is recommended for further observation due to elevated BNP with clinical signs of congestive heart failure exacerbation CBC/BMP: 04/20/17 0601 04/20/17 0601 Significant Findings Laboratory Tests Test 04/18/17 23:27 04/19/17 05:49 04/19/17 11:16 04/20/17 06:01 Monocytes (%) (Auto) 12.1 % (0.0-8.0) 14.9 % (0.0-8.0) Basophils (%) (Auto) 2.5 % (0.0-2.0) Prothrombin Time 13.5 SEC (9.8-11.6) Blood Urea Nitrogen 22 MG/DL (7-18) Total Protein 6.3 GM/DL (6.4-8.2) Albumin 3.1 GM/DL (3.4-5.0) Calcium Level 8.1 MG/DL (8.5-10.1) 8.4 MG/DL (8.5-10.1) Total Bilirubin 2.8 MG/DL (0.2-1.0) Estimat Glomerular Filtration Rate 76 ML/MIN (>89) Troponin I LESS THAN 0.02 NG/ML LESS THAN 0.02 NG/ML LESS THAN 0.02 NG/ML B-Type Natriuretic Peptide 975 PG/ML (0-100) Mean Corpuscular Hemoglobin Concent 31.5 % (32.0-36.0) Eosinophils (%) (Auto) 5.8 % (0.0-4.0) Carbon Dioxide Level 34.6 MEQ/L (21.0-32.0) Anion Gap 4 MEQ/L (5-15) Test 04/20/17 19:46 Blood Gas HCO3 33 mmol/L (22-26) Blood Gas Base Excess 8.3 mmol/L (-2-2) Blood Gas Oxygen Saturation 79 % (90-100) Arterial Blood pH 7.44 (7.380-7.420) Arterial Blood Partial Pressure CO2 49 mmHG (38-42) Arterial Blood Partial Pressure O2 49 mmHG (61-120) Imaging Last Impressions Lung Scan-VQ Nuclear Medicine 04/20/17 0000 Signed Impressions: Service Date/Time: Thursday, April 20, 2017 17:37 - CONCLUSION: Low probability for PE. Luis Moncada MD Chest X-Ray 04/20/17 0000 Signed Impressions: Service Date/Time: Thursday, April 20, 2017 18:45 - CONCLUSION: No appreciable change. Luis Moncada MD PE at Discharge GENERAL: This is a well-nourished, well-developed patient, in no apparent distress. CARDIOVASCULAR: Regular rate and rhythm without murmurs, gallops, or rubs. RESPIRATORY: Clear to auscultation. Breath sounds equal bilaterally. No wheezes , rales, or rhonchi. GASTROINTESTINAL: Abdomen soft, non-tender, nondistended. Normal active bowel sounds MUSCULOSKELETAL: Extremities without clubbing, cyanosis, or edema. NEURO: Alert & Oriented x4 to person, place, time, situation. Moves all ext x4 Pt update on day of discharge Patient seen and evaluated today in follow-up for discharge planning. Patient did fail his walk test and will require portable O2. I did speak with the patient and his regarding his pulmonary and cardiac disease which are quite debilitating and may require further long-term planning both financially and medically. They expressed understanding. Also, explained the opinions of both the green end worker and car customizer patient will need further outpatient follow-up at a tertiary center for management of pulmonary hypertension. Expressed understanding. Hospital Course This patient is a 56-year-old gentleman with a history of heart failure. He has has had multiple evaluations for heart failure however he is unsure of the severity of his heart failure. Echocardiogram was sent here and he appears to have severe pulmonary hypertension. He also has right sided heart failure likely from chronic interstitial fibrosis. 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 Patient has been seen by both pulmonology and cardiology. They do recommend continue medications for heart failure as well oxygen. Pt Condition on Discharge: Good Discharge Disposition: Discharge Home Discharge Time: > 30 minutes Discharge Instructions DIET: Follow Instructions for: Heart Healthy Diet Activities you can perform: Regular-No Restrictions Follow up Referrals: PCP Follow-up - 1 Week Pulmonology @ [facility] New Medications: Levofloxacin (Levofloxacin) 500 Mg Tablet 500 MG PO DAILY for Infection for 3 Days, #3 TAB 0 Refills Oxygen (O2) (Oxygen (O2)) Device LITER ASHISH.CANULA CONTINUOUS for Prevent Hypoxemia, #2 Oxygen Concentrator Portable Gaseous 2 L/min via Nasal Canula Continuous For 99 months Lisinopril (Lisinopril) 5 Mg Tab 2.5 MG PO DAILY for chf, #31 TAB Continued Medications: Albuterol 18 GM Inh (Ventolin Hfa 18 GM Inh) 90 Mcg/Act Aer 2 PUFF INH Q4H PRN for SHORTNESS OF BREATH, #1 INHALER 0 Refills Amlodipine (Amlodipine) 5 Mg Tab 5 MG PO DAILY for Blood Pressure Management, #30 TAB 0 Refills Carvedilol (Carvedilol) 3.125 Mg Tab 3.125 MG PO BID, #60 TAB 0 Refills Furosemide (Furosemide) 20 Mg Tab 20 MG PO DAILY, #30 TAB 0 Refills Hydrocodone/Acetaminophen (Hydrocodone-Acetamin 5-325 mg) 5 Mg-325 Mg Tablet 1 TAB PO DIRECTED Laverne Groves MD Apr 21, 2017 12:01
== END 2017-04-21 17:15 | disposition home or self-care (01) ==
LOC: PHED 22:25 → PHEDA 04-19 02:16 → PH3A 04-19 04:55
PROVIDERS: ADMIT Hospitalist; ATTEND Hospitalist
DX: J18.9 Pneumonia, unspecified organism (principal); I11.0 Hypertensive heart disease with heart failure; I50.812 Chronic right heart failure; J84.89 Other specified interstitial pulmonary diseases; I44.0 Atrioventricular block, first degree; R94.31 Abnormal electrocardiogram [ECG] [EKG]; I42.9 Cardiomyopathy, unspecified; J84.10 Pulmonary fibrosis, unspecified; I27.29 Other secondary pulmonary hypertension; J96.90 Respiratory failure, unspecified, unspecified whether with hypoxia or hypercapnia; R93.1 Abnormal findings on diagnostic imaging of heart and coronary circulation; M19.90 Unspecified osteoarthritis, unspecified site; Z87.891 Personal history of nicotine dependence
CPT/HCPCS: 36600; 71045; 71046; 78582; 80048; 80053; 82550; 82805; 83880; 84484; 85025; 85610; 85730; 87804; 93005; 93306; 94618; 94664; 96365; 96366; 96372; 96375; 96376; 99285; A9540; A9567; G0378; J1644; J1940; J1956

== ENCOUNTER 2017-08-01 18:30 | Observation (INO) | END 2017-08-02 14:04 | disposition home or self-care (01) | DX: R07.89 Other chest pain (principal); I45.10 Unspecified right bundle-branch block; R00.0 Tachycardia, unspecified; R94.31 Abnormal electrocardiogram [ECG] [EKG]; I11.0 Hypertensive heart disease with heart failure; I50.9 Heart failure, unspecified; J44.9 Chronic obstructive pulmonary disease, unspecified; I27.20 Pulmonary hypertension, unspecified; M19.90 Unspecified osteoarthritis, unspecified site; Z99.81 Dependence on supplemental oxygen; Z79.82 Long term (current) use of aspirin; Z79.899 Other long term (current) drug therapy | CPT/HCPCS: 71045; 80053; 82550; 82552; 83735; 83880; 84484; 85025; 85610; 85730; 93005; 93970; 99285; G0378 ==

== ENCOUNTER 2017-12-01 10:57 | Inpatient (IN) ==
--- NOTE | 2017-12-01 11:27 | ED ---
HPI General Chief complaint: Respiratory Symptoms Stated complaint: SOB/HTN PULMONARY X2DAYS History of Present Illness HPI narrative: This planes of shortness of breath. He reports having severe pulmonary hypertension and is chronically short of breath. However for the last 2 days he has been worse than usual. He wears 3 L of oxygen at home around the clock and says his saturations are usually around percent on those 3 L. He does have cardiology and pulmonary follow-up. He has not had any chest pain or pressure or tightness or heaviness. No fever or cough. He does have chronic leg edema. He is on Lasix therapy. Severity is moderate. No alleviating factors. Symptoms are exacerbated by activity. Related Data Home Medications Medication Instructions Recorded Confirmed albuterol sulfate 2 puff INHALATION Q4-6H PRN 12/01/17 12/01/17 amlodipine 5 mg PO DAILY 12/01/17 12/01/17 aspirin [Aspir-81] 81 mg PO DAILY 12/01/17 12/01/17 carvedilol 3.125 mg PO BID 12/01/17 12/01/17 furosemide 20 mg PO DAILY 12/01/17 12/01/17 losartan 50 mg PO DAILY 12/01/17 12/01/17 Allergies Allergy/AdvReac Type Severity Reaction Status Date / Time diatrizoate meglumine Allergy Severe SWOLLEN Verified 12/01/17 11:03 LEGS, THIGHS, LOWER EXTREMITIES gadobenic acid Allergy Severe SWOLLEN Verified 12/01/17 11:03 LEGS, THIGHS, LOWER EXTREMITIES gadodiamide Allergy Severe SWOLLEN Verified 12/01/17 11:03 LEGS, THIGHS, LOWER EXTREMITIES gadoteridol Allergy Severe SWOLLEN Verified 12/01/17 11:03 LEGS, THIGHS, LOWER EXTREMITIES iodixanol Allergy Severe SWOLLEN Verified 12/01/17 11:03 LEGS, THIGHS, LOWER EXTREMITIES iohexol Allergy Severe SWOLLEN Verified 12/01/17 11:03 LEGS, THIGHS, LOWER EXTREMITIES Review of Systems ROS: all other systems reviewed are negative PMFSH Social History Social History Substance History: No History of Abuse Smoking Status: Never smoker How Often Do You Have a Drink Containing Alcohol: Never Recent Travel in [facility] within the Last 8 Weeks: No Recent Out of Country Travel within the Last 8 Weeks: No Exam Narrative Exam Narrative: GENERAL: Well-nourished, well-developed patient with mild dyspnea . SKIN: Focused skin assessment reveals no rash and nodules. Skin is Warm and dry. HEAD: Atraumatic. Normocephalic. EYES: Pupils equal and round. No scleral icterus. No injection or drainage. ENT: No nasal bleeding or discharge. Mucous membranes pink and moist. NECK: Trachea midline. No JVD. CARDIOVASCULAR: Regular rate and rhythm. No murmur appreciated. RESPIRATORY: No accessory muscle use. Basilar crackles bilaterally. Breath sounds equal bilaterally. GASTROINTESTINAL: Abdomen soft, non-tender, nondistended. Hepatic and splenic margins not palpable. MUSCULOSKELETAL: No obvious deformities. No clubbing. No cyanosis. Symmetric edema from the knees down. NEUROLOGICAL: Awake and alert. No obvious cranial nerve deficits. Motor grossly within normal limits. Normal speech. PSYCHIATRIC: Appropriate mood and affect; insight and judgment normal. Course Initial Documented Vital Signs Temperature 97.3 F L 12/01/17 10:58 Pulse Rate 122 H 12/01/17 10:58 Respiratory Rate 22 12/01/17 10:58 Blood Pressure 111/76 12/01/17 10:58 Pulse Oximetry 73 L 12/01/17 10:58 Last Documented Vital Signs Temperature 97.3 F L 12/01/17 10:58 Pulse Rate 102 H 12/01/17 12:15 Respiratory Rate 18 12/01/17 12:15 Blood Pressure 86/66 L 12/01/17 12:15 Pulse Oximetry 89 L 12/01/17 12:15 Medical Decision Making MDM Narrative Medical decision making narrative: IV placed and labs sent. I gave him 60 mg IV Lasix. On 4 L nasal cannula his saturations are 94% I reviewed his chest x-ray which shows pulmonary edema. Reviewed his EKG which shows sinus rhythm with no ST elevation Labs reasonably normal. He is starting to diuresis. He will require 23 hour observation for continued diuresis and monitoring. I reviewed with the hospitalist. Medical Screen Exam Complete: Yes Emergency Medical Condition: Yes Differential Diagnosis Differential Diagnosis: Cardiomyopathy, pulmonary hypertension, pulmonary edema Medical Records Medical records reviewed: Yes I reviewed the patient's medical records. Lab Data Lab results reviewed: Yes I reviewed the patient's lab results. Result diagrams: 12/01/17 11:30 12/01/17 11:30 Lab Results 12/01/17 12/01/17 Range/Units 11:30 11:30 CBC w Diff Auto diff final WBC 4.7 (4.0-11.0) th/mm3 RBC 5.37 (4.50-5.90) mil/mm3 Hgb 15.4 (13.0-17.0) gm/dL Hct 48.7 (39.0-51.0) % MCV 90.7 (80.0-100.0) fL MCH 28.6 (27.0-34.0) pg MCHC 31.6 L (32.0-36.0) % RDW 14.7 (11.6-17.2) % Plt Count 192 (150-450) th/mm3 MPV 9.3 (7.0-11.0) fL Neut % (Auto) 52.5 (16.0-70.0) % Lymph % (Auto) 31.8 (9.0-44.0) % Thomas % (Auto) 10.2 H (0.0-8.0) % Eos % (Auto) 4.5 H (0.0-4.0) % Baso % (Auto) 1.0 (0.0-2.0) % Neut # (Auto) 2.5 (1.8-7.7) th/mm3 Lymph # (Auto) 1.5 (1.0-4.8) th/mm3 Thomas # (Auto) 0.5 (0.0-0.9) th/mm3 Eos # (Auto) 0.2 (0.0-0.4) th/mm3 Baso # (Auto) 0.0 (0.0-0.2) th/mm3 WBC Differential . Differential Comment . Sodium 142 (136-145) meq/L Potassium 3.9 (3.5-5.1) meq/L Chloride 104 (98-107) meq/L Carbon Dioxide 28.8 (21.0-32.0) meq/L Anion Gap 9 (5-15) meq/L BUN 18 (7-18) mg/dL Creatinine 1.30 (0.60-1.30) mg/dL Estimated GFR 69 L (>89) mL/min Random Glucose 131 H (74-106) mg/dL Calcium 8.9 (8.5-10.1) mg/dL Total Bilirubin 3.0 H (0.2-1.0) mg/dL AST 37 (15-37) U/L ALT 39 (12-78) U/L Alkaline Phosphatase 114 (45-117) U/L Total Protein 8.0 (6.4-8.2) g/dL Albumin 3.8 (3.4-5.0) g/dL Imaging Data Attestation: I personally reviewed and interpreted this imaging study as follows : Radiologist's impression: Chest X-Ray 12/01/17 11:17 CONCLUSION: Cardiomegaly and findings of congestive heart failure. Discharge Plan Discharge Disposition Patient Disposition: 30 Still Patient Discharge Details Diagnosis: CHF (congestive heart failure) Physicians Team ED Provider: Lenin Aparicio Primary Care Provider: oRb Hobbs Rxs /Orders / Referrals /Forms Prescriptions: No Action losartan 50 mg Tablet 50 mg PO DAILY RF: 0 amlodipine 5 mg Tablet 5 mg PO DAILY RF: 0 aspirin [Aspir-81] 81 mg Tablet,Delayed Release (Dr/Ec) 81 mg PO DAILY RF: 0 carvedilol 3.125 mg Tablet 3.125 mg PO BID RF: 0 furosemide 20 mg Tablet 20 mg PO DAILY RF: 0 albuterol sulfate 90 mcg/actuation Hfa Aerosol Inhaler 2 puff INHALATION Q4-6H PRN (Reason: Wheezing) RF: 0 Discharge Interventions Interventions: Vital Signs Last Done: 12/01/17 12:15 Status ED Status: In Room
[2017-12-01 11:46] LABS: Chloride 104 meq/L (98-107); Potassium 3.9 meq/L (3.5-5.1); Sodium 142 meq/L (136-145)
[2017-12-01 11:49] LABS: Albumin 3.8 g/dL (3.4-5.0); Anion Gap 9 meq/L (5-15); Calcium 8.9 mg/dL (8.5-10.1); Carbon Dioxide 28.8 meq/L (21.0-32.0); Glucose,Random 131 mg/dL (74-106)
[2017-12-01 11:50] LABS: Blood Urea Nitrogen 18 mg/dL (7-18)
[2017-12-01 11:53] LABS: Alanine Aminotransferase 39 U/L (12-78); Aspartate Aminotransferase 37 U/L (15-37); Glomerular Filtration Rate 69 mL/min (>89)
[2017-12-01 11:55] LABS: Alkaline Phosphatase 114 U/L (45-117)
--- NOTE | 2017-12-01 11:55 | XR ---
EXAM DATE: 12/01/2017 11:45 AM EDT AGE/SEX: 57 years / Male INDICATIONS: Short of breath and swollen legs CLINICAL DATA: This is the patient's initial encounter. Patient reports that signs and symptoms have been present for 2 days and indicates a pain score of 3/10. MEDICAL/SURGICAL HISTORY: Hypertension. None. COMPARISON: [facility], CHEST PA & LAT, 09/12/2017. . FINDINGS: The cardiac silhouette is enlarged in transverse diameter. There are findings of congestive heart paty lure with interstitial and alveolar opacity bilaterally. A small right sided effusion is present. CONCLUSION: Cardiomegaly and findings of congestive heart failure. Electronically signed by: Ayaan Noyola MD 12/01/2017 11:54 AM EDT
[2017-12-01 12:28] LABS: Eos # (Auto) 0.2 th/mm3 (0.0-0.4); Eos % (Auto) 4.5 % (0.0-4.0); Hematocrit 48.7 % (39.0-51.0); Hemoglobin 15.4 gm/dL (13.0-17.0); Lymph # (Auto) 1.5 th/mm3 (1.0-4.8); Lymph % (Auto) 31.8 % (9.0-44.0); Mean Corpuscular HGB Conc 31.6 % (32.0-36.0); Mean Corpuscular Hemoglobin 28.6 pg (27.0-34.0); Mean Corpuscular Volume 90.7 fL (80.0-100.0); Mean Platelet Volume 9.3 fL (7.0-11.0); Mono # (Auto) 0.5 th/mm3 (0.0-0.9); Mono % (Auto) 10.2 % (0.0-8.0); Neut # (Auto) 2.5 th/mm3 (1.8-7.7); Neut % (Auto) 52.5 % (16.0-70.0); Platelet Count 192 th/mm3 (150-450); Red Blood Count 5.37 mil/mm3 (4.50-5.90); Red Cell Distribution Width 14.7 % (11.6-17.2); White Blood Count 4.7 th/mm3 (4.0-11.0)
[2017-12-01] MEDS ORDERED: Bisacodyl 10 MG Supp RECTAL PRN (12:50)
--- NOTE | 2017-12-01 14:38 | P.HP ---
History of Present Illness Primary Care Physician: Rob Hobbs MD Chief Complaint: Lower extremity edema, shortness of breath History of Present Illness: 57-year-old male with known history of chronic hypoxic respiratory failure, chronic diastolic congestive heart failure, pulmonary hypertension, hypertension who presented to hospital because of increased lower extremity edema and dyspnea on exertion. Patient states that he is in normal state of health until 3 days ago when he started noticing his lower extremity swelling. He states that he can usually walk from his couch to his car before having to rest. Now the patient cannot walk to the kitchen without having to rest. He states that he has had worsening dyspnea on exertion. He denies any orthopnea, or paroxysmal nocturnal dyspnea. Patient did come to emergency department for evaluation and chest x-ray did show findings of congestive heart failure. Patient had to increase to 4 L of oxygen to maintain oxygen saturation. Is recommended by the ER physician the patient be admitted for further evaluation and management. Patient denies any chest pain, nausea, vomiting, abdominal pain , diaphoresis, lightheadedness, dizziness. - Diagnosis (1) Acute diastolic (congestive) heart failure Inpatient Certification: I certify that the inpatient services were ordered in accordance with Medicare regulations governing the order. This includes certification that hospital inpatient services are reasonable and necessary and in the case of services not specified as inpatient-only under 42 CFR 419.22(n), that they are appropriately provided as inpatient services in accordance to with the 2-midnight benchmark under 43 CFR 412.3(e) Estimated Total Length of Stay (Days): 2 Plans for Post Hospital Care: Home Review of Systems All other systems reviewed negative except as stated in HPI Cardiovascular: Reports leg swelling, Reports shortness of breath with activity PMFSH - History History Provided By: Patient - Medical History Medical History: Medical History (Last Updated 12/01/17 @ 14:28 by TODD Lema) Chronic diastolic congestive heart failure Chronic obstructive pulmonary disease Chronic respiratory failure with hypoxia Hypertension Pulmonary hypertension - Surgical History Surgical History: Surgical History (Last Updated 12/01/17 @ 14:28 by TODD Lema) History of cholecystectomy History of hernia repair History of lung biopsy History of retinal detachment - Family History Family History: Family History (Last Updated 12/01/17 @ 14:28 by TODD Lema) Father History of hypertension Mother History of breast cancer - Tobacco History Smoking Status: Never smoker - Alcohol History How Often Do You Have a Drink Containing Alcohol: Never - Substance Use History Substance History: No History of Abuse - Travel History Recent Travel in the [place] Within the Last 8 Weeks: No Recent Travel Out of the Country Within the Last 8 Weeks: No - Immunization History Tetanus Immunization: Unsure Hx Influenza Vaccine This Season: No Medications and Allergies Active Medications: Active Medications Al Hydroxide/Mg Hydroxide (Milk Of Magnesia Liq) 30 ml PO Q12H PRN PRN Reason: Mild Constipation Bisacodyl (Dulcolax Supp) 10 mg RECTAL DAILY PRN PRN Reason: SEVERE CONSITIPATION Lactulose (Lactulose Liq) 30 ml PO DAILY PRN PRN Reason: SEVERE CONSITIPATION Ondansetron HCl (Zofran Inj) 4 mg IV.PUSH Q6H PRN PRN Reason: NAUSEA OR VOMITING Senna/Docusate Sodium (Zoe-Colace) 1 tab PO BID JOHN Sennosides (Senokot) 17.2 mg PO Q12H PRN PRN Reason: Moderate Constipation Allergies Allergy/AdvReac Type Severity Reaction Status Date / Time diatrizoate meglumine Allergy Severe SWOLLEN Verified 12/01/17 11:03 LEGS, THIGHS, LOWER EXTREMITIES gadobenic acid Allergy Severe SWOLLEN Verified 12/01/17 11:03 LEGS, THIGHS, LOWER EXTREMITIES gadodiamide Allergy Severe SWOLLEN Verified 12/01/17 11:03 LEGS, THIGHS, LOWER EXTREMITIES gadoteridol Allergy Severe SWOLLEN Verified 12/01/17 11:03 LEGS, THIGHS, LOWER EXTREMITIES iodixanol Allergy Severe SWOLLEN Verified 12/01/17 11:03 LEGS, THIGHS, LOWER EXTREMITIES iohexol Allergy Severe SWOLLEN Verified 12/01/17 11:03 LEGS, THIGHS, LOWER EXTREMITIES Home Medications Medication Instructions Recorded Confirmed Type albuterol sulfate 2 puff INHALATION Q4-6H PRN 12/01/17 12/01/17 History amlodipine 5 mg PO DAILY 12/01/17 12/01/17 History aspirin [Aspir-81] 81 mg PO DAILY 12/01/17 12/01/17 History carvedilol 3.125 mg PO BID 12/01/17 12/01/17 History furosemide 20 mg PO DAILY 12/01/17 12/01/17 History losartan 50 mg PO DAILY 12/01/17 12/01/17 History Exam Vital signs: Vital Signs 12/01/17 10:58 12/01/17 11:20 12/01/17 12:15 Temperature 97.3 F L Pulse Rate 122 H 104 H 102 H Respiratory Rate 22 18 Blood Pressure 111/76 86/66 L Pulse Oximetry 73 L 88 L 89 L 12/01/17 13:51 Temperature Pulse Rate 94 H Respiratory Rate 18 Blood Pressure 92/76 L Pulse Oximetry 90 L Intake & Output 11/30/17 12/01/17 12/01/17 18:59 06:59 18:59 Output Total 1150 / 1150 Balance -1150 / -1150 Weight 80 kg Output: Urine 1150 / 1150 Narrative: GENERAL: Well-developed, well-nourished, in no acute distress. alert and orientated HEENT: Head is normocephalic without any lesions or masses noted. Facial features are symmetric. Eyes: Pupils equal round reactive to light. Extraocular muscles are intact. Conjunctivae were clear. Oropharyngeal: Pharynx without any erythema edema. Tongue is midline without deviation. Buccal mucosa is moist without any masses or lesions NECK: Supple without any masses. Trachea midline no deviation. No JVD, no bruits are appreciated CARDIAC: Regular rhythm, regular rate. S1/S2 are heard. No murmurs gallops or rubs. LUNGS: Clear to auscultation bilaterally. No wheeze, rhonchi or rales. No use of accessory muscles on inspiration or expiration. ABDOMEN: Soft, nontender. Nondistended. Bowel sounds heard in all 4 quadrants. No organomegaly or masses. Negative rebound, negative guarding EXTREMITIES: 2+ pitting edema noted bilateral lower extremities, pulses are equal bilaterally. No cyanosis or clubbing NEUROLOGY: Mood and affect appear appropriate. Cranial nerves II through XII grossly intact. Muscle strength 5/5 in upper and lower extremities bilaterally. Deep tendon reflexes are 2+ in upper and lower extremities bilaterally. Results - Labs CBC & Chem 7: 12/01/17 11:30 12/01/17 11:30 Labs: Laboratory Results - last 24 hr 12/01/17 12/01/17 11:30 11:30 CBC w Diff Auto diff final WBC 4.7 RBC 5.37 Hgb 15.4 Hct 48.7 MCV 90.7 MCH 28.6 MCHC 31.6 L RDW 14.7 Plt Count 192 MPV 9.3 Neut % (Auto) 52.5 Lymph % (Auto) 31.8 [place] % (Auto) 10.2 H Eos % (Auto) 4.5 H Baso % (Auto) 1.0 Neut # (Auto) 2.5 Lymph # (Auto) 1.5 [place] # (Auto) 0.5 Eos # (Auto) 0.2 Baso # (Auto) 0.0 WBC Differential . Differential Comment . Sodium 142 Potassium 3.9 Chloride 104 Carbon Dioxide 28.8 Anion Gap 9 BUN 18 Creatinine 1.30 Estimated GFR 69 L Random Glucose 131 H Calcium 8.9 Total Bilirubin 3.0 H AST 37 ALT 39 Alkaline Phosphatase 114 Total Protein 8.0 Albumin 3.8 - Imaging Impressions Chest X-Ray 12/01/17 11:17 CONCLUSION: Cardiomegaly and findings of congestive heart failure. Caprini VTE Risk Assessment Caprini VTE Risk Assessment: Moderate/High Risk (score >= 2) Caprini Risk Assessment Model: Point Value = 1 Point Value = 2 Point Value = 3 Point Value = 5 Age 41-60 Minor surgery BMI > 25 kg/m2 Swollen legs Varicose veins or History of unexplained or recurrent spontaneous Oral contraceptives or hormone replacement Sepsis (< 1 month) Serious lung disease, including pneumonia (< 1 month) Abnormal pulmonary function Acute myocardial infarction Congestive heart failure (< 1 month) History of inflammatory bowel disease Medical patient at bed rest Age 61-74 Arthroscopic surgery Major open surgery (> 45 min) Laparoscopic surgery (> 45 min) Malignancy Confined to bed (> 72 hours) Immobilizing plaster cast Central venous access Age >= 75 History of VTE Family history of VTE Factor V Leiden Prothrombin [id number] Lupus anticoagulant Anticardiolipin antibodies Elevated serum homocysteine Heparin-induced thrombocytopenia Other congenital or acquired thrombophilia Stroke (< 1 month) Elective arthroplasty Hip, pelvis, or leg fracture Acute spinal cord injury (< 1 month) Prophylaxis Regimen: Total Risk Factor Score Risk Level Prophylaxis Regimen 0-1 Low Early ambulation 2 Moderate Order ONE of the following: *Sequential Compression Device (SCD) *Heparin 5000 units SQ BID 3-4 Higher Order ONE of the following medications: *Heparin 5000 units SQ TID *Enoxaparin/Lovenox 40 mg SQ daily (WT < 150 kg, CrCl > 30 mL/min) *Enoxaparin/Lovenox 30 mg SQ daily (WT < 150 kg, CrCl > 10-29 mL/min) *Enoxaparin/Lovenox 30 mg SQ BID (WT < 150 kg, CrCl > 30 mL/min) AND/OR *Sequential Compression Device (SCD) 5 or more Highest Order ONE of the following medications: *Heparin 5000 units SQ TID (Preferred with Epidurals) *Enoxaparin/Lovenox 40 mg SQ daily (WT < 150 kg, CrCl > 30 mL/min) *Enoxaparin/Lovenox 30 mg SQ daily (WT < 150 kg, CrCl > 10-29 mL/min) *Enoxaparin/Lovenox 30 mg SQ BID (WT < 150 kg, CrCl > 30 mL/min) AND *Sequential Compression Device (SCD) Assessment and Plan - Assessment (1) Acute diastolic (congestive) heart failure Code(s): I50.31 - Acute diastolic (congestive) heart failure Status: Acute - Plan Acute on chronic diastolic congestive heart failure -Patient presented with dyspnea on exertion, lower extremity edema -Patient was given Lasix 60 mg IV in the emergency department, continue Lasix 20 mg po daily -Echocardiogram from 7 months ago shows severe pulmonary hypertension with PA peak pressure 99 mmhg, ejection fraction 60-65% with normal left ventricular function -Start fluid restriction -Continue beta-cortney, ARB Chronic hypoxic respiratory failure -Likely secondary to chronic affective pulmonary disease, pulmonary hypertension -Continue O2 supplementation maintain O2 sats greater than 92% -Continue duo nebs as needed Hypertension -Continue home medications DVT prevention -Subcutaneous heparin
--- NOTE | 2017-12-01 19:22 | ECG ---
Date Performed: 12/01/2017 Time Performed: 11:11:55 PTAGE: 57 years EKG: SINUS TACHYCARDIA POSSIBLE RIGHT ATRIAL ENLARGEMENT LEFT ATRIAL ENLARGEMENT INCOMPLETE RIGH T BUNDLE BRANCH BLOCK RIGHT VENTRICULAR HYPERTROPHY PROBABLE INFERIOR MYOCARDIAL INFARCTION MARKED T- WAVE ABNORMALITY, CONSIDER ANTERIOR ISCHEMIA ABNORMAL ECG PREVIOUS TRACING : 09/11/2017 15.44 Since the previous tracing, no significant change noted DOCTOR: Jennifer Valdez Interpretating Date/Time 12/01/2017 19:22:11
[2017-12-01] MEDS: Heparin - SQ 10,000 UNITS/ML Vial SQ SCH (21:53)
[2017-12-01] MEDS: Senna/Docusate Sodium 8.6/50 MG Tablet PO SCH ×2 (21:54→22:01)
[2017-12-02 07:06] LABS: Chloride 105 meq/L (98-107); Potassium 3.8 meq/L (3.5-5.1); Sodium 143 meq/L (136-145)
[2017-12-02 07:16] LABS: Anion Gap 8 meq/L (5-15); Blood Urea Nitrogen 21 mg/dL (7-18); Calcium 8.1 mg/dL (8.5-10.1); Carbon Dioxide 30.2 meq/L (21.0-32.0); Glomerular Filtration Rate Greater Than 89 mL/min (>89); Glucose,Random 75 mg/dL (74-106)
[2017-12-02] MEDS ORDERED: Furosemide 20 MG Tablet PO SCH (09:00)
--- NOTE | 2017-12-02 09:28 | P.PNIM ---
Subjective Interval history: Follow-up acute on chronic CHF. Patient seen and examined, lying in bed comfortably no apparent distress. Still continued on 4 L nasal cannula. Denies any shortness of breath. Has been urinating although urine is davide colored this morning. Will increase Lasix. Afebrile. Vital signs stable. Will continue to monitor. Denies any fever, chills, cough, abdominal pain, nausea, vomiting, diarrhea or dysuria. Physical Exam Vital signs: Vital Signs 12/01/17 10:58 12/01/17 11:20 12/01/17 11:30 Temperature 97.3 F L Pulse Rate 122 H 104 H Respiratory Rate 22 Blood Pressure 111/76 Pulse Oximetry 73 L 88 L 94 L 12/01/17 12:15 12/01/17 13:51 12/01/17 16:00 Temperature 98.2 F Pulse Rate 102 H 94 H 101 H Respiratory Rate 18 18 21 Blood Pressure 86/66 L 92/76 L 101/74 Pulse Oximetry 89 L 90 L 92 L 12/01/17 19:05 12/01/17 20:00 12/02/17 00:00 Temperature 97.4 F L 96.5 F L Pulse Rate 96 H 90 98 H Respiratory Rate 18 18 18 Blood Pressure 89/60 L 100/72 Pulse Oximetry 92 L 92 L 90 L 12/02/17 04:00 12/02/17 07:21 12/02/17 08:33 Temperature 98.4 F 96.5 F L Pulse Rate 94 H 93 H 92 H Respiratory Rate 18 18 16 Blood Pressure 97/68 L 101/73 Pulse Oximetry 91 L 93 L 93 L Intake & Output 12/01/17 12/02/17 12/02/17 18:59 06:59 18:59 Intake Total 480 / 480 200 / 200 Output Total 2250 / 2250 Balance -1770 / -1770 200 / 200 Weight 78.8 kg 78.8 kg Intake: Oral 480 / 480 200 / 200 Output: Urine 2250 / 2250 Other: # Bowel Movements 0 Weight On Admission 78.8 kg Results - Labs CBC & Chem 7: 12/01/17 11:30 12/02/17 06:40 Laboratory Results - last 24 hr 12/01/17 12/01/17 12/02/17 11:30 11:30 06:40 CBC w Diff Auto diff final WBC 4.7 RBC 5.37 Hgb 15.4 Hct 48.7 MCV 90.7 MCH 28.6 MCHC 31.6 L RDW 14.7 Plt Count 192 MPV 9.3 Neut % (Auto) 52.5 Lymph % (Auto) 31.8 [place] % (Auto) 10.2 H Eos % (Auto) 4.5 H Baso % (Auto) 1.0 Neut # (Auto) 2.5 Lymph # (Auto) 1.5 [place] # (Auto) 0.5 Eos # (Auto) 0.2 Baso # (Auto) 0.0 WBC Differential . Differential Comment . Sodium 142 143 Potassium 3.9 3.8 Chloride 104 105 Carbon Dioxide 28.8 30.2 Anion Gap 9 8 BUN 18 21 H Creatinine 1.30 1.00 Estimated GFR 69 L Greater than 89 Random Glucose 131 H 75 Calcium 8.9 8.1 L D Total Bilirubin 3.0 H AST 37 ALT 39 Alkaline Phosphatase 114 Total Protein 8.0 Albumin 3.8 - Imaging Impressions Chest X-Ray 12/01/17 11:17 CONCLUSION: Cardiomegaly and findings of congestive heart failure. Assessment and Plan - Assessment (1) Acute diastolic (congestive) heart failure Code(s): I50.31 - Acute diastolic (congestive) heart failure Status: Acute - Plan This is a 57-year-old male patient with: Acute on chronic diastolic congestive heart failure -Patient presented with dyspnea on exertion, lower extremity edema. Has been improving. -Patient was given Lasix 60 mg IV in the emergency department, continued on Lasix 20 mg po daily. Will increase to Lasix 40 mg IV daily. Monitor intake and output closely. Still requiring 4 L nasal cannula. -Echocardiogram from 7 months ago shows severe pulmonary hypertension with PA peak pressure 99 mmhg, ejection fraction 60-65% with normal left ventricular function -Start fluid restriction, 1500 mL's a day. -Continue beta-cortney, ARB Chronic hypoxic respiratory failure -Likely secondary to chronic affective pulmonary disease, pulmonary hypertension -Continue O2 supplementation maintain O2 sats greater than 92%. Still requiring 4 L nasal cannula. -Continue duo nebs as needed Hypertension -Continue home medications DVT prevention -Subcutaneous heparin Discharge Planning: Awaiting clinical improvement. Still requiring 4 L nasal cannula.
[2017-12-02] MEDS: Heparin - SQ 10,000 UNITS/ML Vial SQ SCH ×2 (10:13→20:54)
[2017-12-02] MEDS: amLODIPine 5 MG Tablet PO SCH ×2 (10:13→19:06)
[2017-12-02] MEDS: Senna/Docusate Sodium 8.6/50 MG Tablet PO SCH ×2 (10:13→20:55)
[2017-12-03] MEDS: Senna/Docusate Sodium 8.6/50 MG Tablet PO SCH (08:34)
[2017-12-03] MEDS: amLODIPine 5 MG Tablet PO SCH (08:35)
[2017-12-03] MEDS: Heparin - SQ 10,000 UNITS/ML Vial SQ SCH (08:35)
[2017-12-03 09:00] VITALS: BP 102/73; PULSE 101; RESP 20; TEMP 96.5; O2SAT 90
--- NOTE | 2017-12-03 09:12 | P.DS ---
Date of admission: 12/01/17 13:06 Primary care physician: Rob Hobbs MD Brief History from admission: 57-year-old male with known history of chronic hypoxic respiratory failure, chronic diastolic congestive heart failure, pulmonary hypertension, hypertension who presented to hospital because of increased lower extremity edema and dyspnea on exertion. Patient states that he is in normal state of health until 3 days ago when he started noticing his lower extremity swelling. He states that he can usually walk from his couch to his car before having to rest. Now the patient cannot walk to the kitchen without having to rest. He states that he has had worsening dyspnea on exertion. He denies any orthopnea, or paroxysmal nocturnal dyspnea. Patient did come to emergency department for evaluation and chest x-ray did show findings of congestive heart failure. Patient had to increase to 4 L of oxygen to maintain oxygen saturation. Is recommended by the ER physician the patient be admitted for further evaluation and management. Patient denies any chest pain, nausea, vomiting, abdominal pain , diaphoresis, lightheadedness, dizziness. DS: Diagnosis - Discharge Diagnosis (1) Acute diastolic (congestive) heart failure Status: Acute DS: Summary Hospital Course: This is a 57-year-old male patient with acute on chronic diastolic congestive heart failure. Patient presented with dyspnea on exertion, lower extremity edema. All symptoms have improved. Patient was given Lasix 60 mg IV in the emergency department, continued on Lasix 40 mg IV daily. Continued on Lasix 20 mg po daily. Negative output noted. Echocardiogram from 7 months ago shows severe pulmonary hypertension with PA peak pressure 99 mmhg, ejection fraction 60-65% with normal left ventricular function. Encouraged fluid restriction, 1500 mL's a day. Continue beta-cortney, ARB. Patient also has chronic hypoxic respiratory failure likely secondary to chronic affective pulmonary disease, pulmonary hypertension. Continued O2 supplementation maintain O2 sats greater than 92%. Uses 3L NC at home. Follows with Dr. Bansal. Continue duo nebs as needed. History of Hypertension, Continued on home medications. Patient is stable. All symptoms resolved. Will be dcd home to follow up with PCP and Dr. Zarco. - Time Spent with Patient Total time spent providing and/or coordinating discharge services: Greater than 30 minutes - Quality: VTE Deep Vein Thrombosis/Pulmonary Embolism Present on Admission: No Exam Vital signs: Vital Signs 12/02/17 13:23 12/02/17 16:12 12/02/17 19:44 Temperature 96.8 F L Pulse Rate 93 H 98 H Respiratory Rate 18 18 Blood Pressure 110/78 Pulse Oximetry 96 94 L 95 12/02/17 20:00 12/03/17 00:00 12/03/17 04:00 Temperature 97.4 F L 95.1 F L 96.1 F L Pulse Rate 97 H 99 H 97 H Respiratory Rate 18 18 18 Blood Pressure 102/74 94/70 L 92/64 L Pulse Oximetry 96 95 96 12/03/17 07:40 12/03/17 08:00 Temperature 96.5 F L Pulse Rate 101 H Respiratory Rate 20 Blood Pressure 102/73 Pulse Oximetry 93 L 90 L Intake & Output 12/02/17 12/03/17 12/03/17 18:59 06:59 18:59 Intake Total 450 / 450 Output Total 1800 / 1800 200 / 200 Balance -1350 / -1350 -200 / -200 Intake: Oral 450 / 450 Output: Urine 1800 / 1800 200 / 200 Other: # Voids 4 Date of Last Bowel Movement 12/02/17 Narrative: GENERAL: Well-developed, well-nourished patient in NAD. On supplemental O2. SKIN: Warm and dry. No rash. HEAD: Normocephalic. Atraumatic. EYES: Pupils equal and round. No scleral icterus. No injection or drainage. ENT: No nasal bleeding or discharge. Mucous membranes pink and moist. NECK: Supple. Trachea midline. CARDIOVASCULAR: Regular rate and rhythm. S1, S2 noted. No murmur appreciated. RESPIRATORY: No accessory muscle use. Coarse breath sounds throughout. Breath sounds equal bilaterally. GASTROINTESTINAL: Abdomen soft, non-tender, nondistended. Normoactive bowel sounds x4. MUSCULOSKELETAL: No obvious deformities. Extremities without clubbing, cyanosis , or edema. NEUROLOGICAL: Awake and alert. No obvious cranial nerve deficits. Motor grossly within normal limits. 5/5 muscle strength in bilateral upper and lower extremities. Normal speech. PSYCHIATRIC: Appropriate mood and affect; insight and judgment normal. Results Procedures completed during hospitalization: None. - Impressions ITS Impressions Chest X-Ray 12/01/17 11:17 CONCLUSION: Cardiomegaly and findings of congestive heart failure. Discharge Plan - Discharge Disposition Patient Disposition: 01 Discharge Home - Discharge Condition Condition: Stable - Discharge Order Discharge Orders: Discharge Order (Routine); Ordered 12/03/17 Ordered By: Lacy John - Discharge Details Anticipated Discharge Date: 12/03/17 - Physicians Team Primary Care Provider: Rob Hobbs Attending Provider: Yobany Bansal Other [facility]iders[facility],Ins[facility]
== END 2017-12-03 10:08 | disposition home or self-care (01) ==
LOC: PHED 10:57 → PHEDA 13:06 → PH3 13:48
PROVIDERS: ADMIT Internal Medicine; ATTEND Internal Medicine